=== PATIENT | female | born 1960 | race Caucasian/White ===

== ENCOUNTER 2019-12-18 18:34 | Emergency (ER) | payer OTHER, BC, SELFPAY ==
[2019-12-18 18:45] VITALS: BP 148/90; PULSE 140; RESP 18; TEMP 36.9; O2SAT 99; BMI 36.3
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
[2019-12-18 20:07] VITALS: BP 148/90; PULSE 100; RESP 18; TEMP 36.9; O2SAT 99
== END 2019-12-18 20:09 | disposition home or self-care (01) ==
PROVIDERS: Emergency Provider Nurse Practitioner Family; PCP Family Medicine
DX: S83.92XA Sprain of unspecified site of left knee, initial encounter (principal); V03.10XA Pedestrian on foot injured in collision with car, pick-up truck or van in traffic accident, initial encounter; Y92.414 Local residential or business street as the place of occurrence of the external cause
CPT/HCPCS: 73552; 73562; 99201

== ENCOUNTER → 2021-04-03 16:47 | Outpatient (CLI) | payer OTHER, SELFPAY ==
[2021-04-03 17:23] LABS: Basophils # 0.1 K/mm3 (0-0.2); Basophils % 1.1 % (0.1-2.0); Eosinophils # 0.2 K/mm3 (0.0-0.4); Eosinophils % 4.7 % (0.1-12.0); Hematocrit 41.2 % (37.0-47.0); Hemoglobin 12.9 g/dL (12.2-16.2); Lymphocytes # 1.2 K/mm3 (0.7-4.5); Lymphocytes % 25.9 % (10-50); Mean Corpuscular HGB Conc 31.3 g/dL (31.8-35.4); Mean Corpuscular Hemoglobin 27.4 pg (27.0-31.2); Mean Corpuscular Volume 87.6 fl (81-99); Monocytes # 0.2 K/mm3 (0.1-1.0); Monocytes % 5.2 % (1.7-9.3); Neutrophils # 2.8 K/mm3 (1.8-7.8); Platelet Count 114 K/mm3 (142-424); Red Cell Distribution Width 16.2 % (11.5-17.5); White Blood Count 4.5 K/mm3 (4.8-10.8)
[2021-04-05 09:13] LABS: Hepatitis B Surface Antigen Negative (Negative)
[2021-04-05 22:25] LABS: QuantiFERON-TB Gold Plus Negative (Negative)
== END ==
PROVIDERS: Visit Provider Internal Medicine Rheumatology
DX: Z79.899 Other long term (current) drug therapy (principal)
CPT/HCPCS: 36415; 85025; 86480; 87340; 87522

== ENCOUNTER → 2021-09-28 15:42 | Outpatient (CLI) | payer OTHER, SELFPAY ==
[2021-09-28 18:30] LABS: Basophils % 0.7 % (0.1-2.0); Eosinophils # 0.2 K/mm3 (0.0-0.4); Eosinophils % 5.6 % (0.1-12.0); Hematocrit 37.2 % (37.0-47.0); Hemoglobin 11.9 g/dL (12.2-16.2); Lymphocytes # 0.9 K/mm3 (0.7-4.5); Lymphocytes % 29.8 % (10-50); Mean Corpuscular HGB Conc 31.9 g/dL (31.8-35.4); Mean Corpuscular Hemoglobin 28.3 pg (27.0-31.2); Mean Corpuscular Volume 88.9 fl (81-99); Monocytes # 0.2 K/mm3 (0.1-1.0); Monocytes % 6.7 % (1.7-9.3); Neutrophils # 1.7 K/mm3 (1.8-7.8); Neutrophils % 57.1 % (37.0-80.0); Platelet Count 113 K/mm3 (142-424); Red Blood Count 4.19 M/mm3 (4.20-5.40); Red Cell Distribution Width 16.3 % (11.5-17.5); White Blood Count 2.9 K/mm3 (4.8-10.8)
== END ==
PROVIDERS: Visit Provider Internal Medicine Rheumatology
DX: Z79.899 Other long term (current) drug therapy (principal)
CPT/HCPCS: 85025

== ENCOUNTER → 2021-12-08 10:37 | Outpatient (CLI) | payer OTHER, SELFPAY ==
[2021-12-08 11:12] LABS: MANUAL DIFFERENTIAL MANUAL DIFFERENTIAL (MANUAL DIFF)
[2021-12-08 11:25] LABS: Basophils % 0.9 % (0.1-2.0); Eosinophils # 0.1 K/mm3 (0.0-0.4); Hematocrit 36.5 % (37.0-47.0); Lymphocytes # 0.8 K/mm3 (0.7-4.5); Lymphocytes % 32.2 % (10-50); Mean Corpuscular HGB Conc 32.8 g/dL (31.8-35.4); Mean Corpuscular Hemoglobin 28.5 pg (27.0-31.2); Mean Platelet Volume 9.1 fl (7.4-10.4); Monocytes # 0.1 K/mm3 (0.1-1.0); Monocytes % 5.2 % (1.7-9.3); Neutrophils # 1.5 K/mm3 (1.8-7.8); Neutrophils % 56.6 % (37.0-80.0); Platelet Count 92 K/mm3 (142-424); Red Blood Count 4.19 M/mm3 (4.20-5.40); Red Cell Distribution Width 15.5 % (11.5-17.5); White Blood Count 2.6 K/mm3 (4.8-10.8)
[2021-12-08 12:24] LABS: Alanine Aminotransferase 34 U/L (12-78); Albumin Level 3.7 g/dl (3.5-5.0); Albumin/Globulin Ratio 0.9 (1.1-1.8); Alkaline Phosphatase 94 U/L (38-126); Anion Gap 16.8 mEq/L (5-15); Aspartate Amino Transferase 64 U/L (14-36); Bilirubin,Total 0.8 mg/dl (0.2-1.3); Blood Urea Nitrogen 16 mg/dl (7-17); Calcium 8.7 mg/dl (8.4-10.2); Carbon Dioxide 21 mmol/L (22.0-30.0); Chloride 110 mmol/L (98-107); Chol/HDL Ratio 3.9 (1-3.5); Cholesterol 131 mg/dl (140-200); Estimated Glomerular Filt Rate 63 ml/min (>60); GFR (African American) 77 ML/MIN (>60); Globulin 4.3 g/dL (1.3-3.2); Glucose 139 mg/dl (74-100); HDL Cholesterol 34 mg/dl (40-60); Potassium 4.8 mmoL/L (3.5-5.1); Sodium 143 mmol/L (136-145); Triglycerides 154 mg/dl (30-150); VLDL Cholesterol 31 mg/dL (0-40)
[2021-12-08 12:34] LABS: Direct LDL Cholesterol 65.57 mg/dL (100-129)
[2021-12-08 12:54] LABS: Thyroid Stimulating Hormone 1.33 uIU/mL (0.465-4.68)
[2021-12-08 17:07] LABS: Eosinophils % 4 % (0-3); Lymphocytes % 40 % (10-50); Monocytes % 8 % (2-9); Neutrophils % 48 % (42-76); Platelet Estimate Marked Decrease; RBC Morphology Normal; Total Cells Counted 100
== END ==
PROVIDERS: Visit Provider Family Medicine
DX: I10 Essential (primary) hypertension (principal); D64.9 Anemia, unspecified; L40.50 Arthropathic psoriasis, unspecified; G47.00 Insomnia, unspecified
CPT/HCPCS: 80053; 80061; 84443; 85007; 85014; 85018; 85048; 85049

== ENCOUNTER → 2021-12-14 16:44 | Outpatient (CLI) | payer OTHER, SELFPAY ==
[2021-12-14 18:41] LABS: Vitamin B12 539 pg/mL (239-931)
[2021-12-14 20:08] LABS: Ferritin 82.7 ng/ml (11.1-264)
[2021-12-19 11:14] LABS: Iron 65 ug/dL (37-170)
[2021-12-19 11:23] LABS: Total Iron Binding Capacity 325 ug/dL (265-497)
== END ==
PROVIDERS: PCP Family Medicine; Visit Provider Internal Medicine Medical Oncology
DX: D61.818 Other pancytopenia (principal)
CPT/HCPCS: 36415; 82525; 82607; 82728; 82746; 83540; 83550

== ENCOUNTER → 2021-12-20 16:36 | Outpatient (CLI) | payer OTHER, SELFPAY ==
[2021-12-20 18:05] LABS: Chloride 104 mmol/L (98-107); Sodium 140 mmol/L (136-145)
[2021-12-20 18:06] LABS: Potassium 4.5 mmoL/L (3.5-5.1)
[2021-12-20 18:08] LABS: Alanine Aminotransferase 37 U/L (12-78); Albumin Level 4.2 g/dl (3.5-5.0); Alkaline Phosphatase 76 U/L (38-126); Anion Gap 14.5 mEq/L (5-15); Aspartate Amino Transferase 67 U/L (14-36); Bilirubin,Total 0.7 mg/dl (0.2-1.3); Blood Urea Nitrogen 20 mg/dl (7-17); Calcium 9.8 mg/dl (8.4-10.2); Carbon Dioxide 26 mmol/L (22.0-30.0); Estimated Glomerular Filt Rate 73 ml/min (>60); GFR (African American) 88 ML/MIN (>60); Globulin 4.3 g/dL (1.3-3.2); Glucose 145 mg/dl (74-100); Total Protein,Serum 8.5 g/dl (6.3-8.2)
== END ==
PROVIDERS: PCP Family Medicine; Visit Provider Emergency Medicine
DX: R74.8 Abnormal levels of other serum enzymes (principal)
CPT/HCPCS: 36415; 80053

== ENCOUNTER → 2021-12-21 08:31 | Outpatient (CLI) | payer OTHER, SELFPAY ==
--- NOTE | 2021-12-21 08:35 | CT_ITS ---
FINAL REPORT TECHNIQUE: Axial CT images of the abdomen were obtained with IV contrast only. Coronal reformatted images were also obtained. This study was performed with techniques to keep radiation doses as low as reasonably achievable (ALARA). Individualized dose reduction techniques using automated exposure control or adjustment of mA and/or kV according to the patient''s size were employed. CLINICAL HISTORY: pancytopenia FINDINGS: The lung bases are clear. The liver is enlarged up to 22 cm. The liver has a lobular, nodular peripheral margin consistent with cirrhosis. There is a small amount of ascites. The gallbladder is surgically absent. There is no evidence of biliary ductal dilatation. The pancreas appears normal. The spleen is markedly enlarged up to 19.5 cm. There is no evidence of renal mass or hydronephrosis. There is no evidence of adenopathy. No abnormal fluid collection is seen. No localized inflammatory processes identified. There are scattered diverticulum in the descending colon. IMPRESSION: Cirrhosis with hepatosplenomegaly and a small amount of ascites. Reviewed, Interpreted and Dictated by Tee Be MD Transcribed by Kamron Rdz Authenticated and [facility]
== END ==
PROVIDERS: PCP Family Medicine; Visit Provider Internal Medicine Medical Oncology
DX: D61.818 Other pancytopenia (principal)
CPT/HCPCS: 74160; Q9967

== ENCOUNTER → 2022-01-01 16:51 | Outpatient (CLI) | payer OTHER, SELFPAY ==
--- NOTE | 2022-01-01 16:54 | MM_ITS ---
PROCEDURE INFORMATION: Exam: MG Bilateral Screening 3D Mammography Exam date and time: 01/01/2022 4:59 PM Age: 61 years old Clinical indication: Screening examination TECHNIQUE: Imaging protocol: Bilateral Screening tomosynthesis and 2D mammography including computer-aided detection (CAD) when performed. COMPARISON: 1. MG SCREENING VY MAMMOGRAM 11/19/2018 7:43 AM 2. MG SCREENING VY MAMMOGRAM 11/18/2017 7:52 AM FINDINGS: MAMMOGRAPHY: Breast composition: There are scattered areas of fibroglandular density. Mass: None. Architectural distortion: None. Calcifications: No suspicious calcifications. Asymmetric density: None. Skin thickening: None. Axillary adenopathy: None. IMPRESSION: No mammographic evidence of malignancy. Annual screening is recommended unless otherwise clinically indicated. ASSESSMENT: BI-RADS Category 1: Negative
== END ==
PROVIDERS: PCP Family Medicine; Visit Provider Family Medicine
DX: Z12.31 Encounter for screening mammogram for malignant neoplasm of breast (principal)
CPT/HCPCS: 77063; 77067

== ENCOUNTER → 2022-03-01 16:45 | Outpatient (CLI) | payer OTHER, SELFPAY ==
--- NOTE | 2022-03-01 16:52 | XR_ITS ---
PROCEDURE INFORMATION: Exam: XR Right Elbow Exam date and time: 03/01/2022 4:55 PM Age: 61 years old Clinical indication: Pain; Elbow; Right; Additional info: Elbow pain TECHNIQUE: Imaging protocol: Radiologic exam of the Right elbow. Views: 3 or more views. COMPARISON: No relevant prior studies available. FINDINGS: Bones/joints: There is a nondisplaced intra-articular fracture of the radial head. No other acute fracture seen. No significant arthritic changes are seen. No evidence of hemarthrosis seen. Soft tissues: Normal. IMPRESSION: Nondisplaced radial head fracture
--- NOTE | 2022-03-01 16:52 | XR_ITS ---
PROCEDURE INFORMATION: Exam: XR Right Forearm Exam date and time: 03/01/2022 4:55 PM Age: 61 years old Clinical indication: Pain; Elbow; Right; Additional info: Fall, R elbow pain TECHNIQUE: Imaging protocol: Radiologic exam of the Right forearm. Views: 2 views. COMPARISON: No relevant prior studies available. FINDINGS: Bones/joints: There is a nondisplaced intra-articular radial head fracture. No other acute fracture seen. Negative ulnar variance is noted. Mild degenerative changes are noted in the radiocarpal joint. Soft tissues: Normal. IMPRESSION: Nondisplaced radial head fracture
== END ==
PROVIDERS: PCP Family Medicine; Visit Provider Student in an Organized Health Care Education/Training Program
DX: M25.521 Pain in right elbow (principal); M79.631 Pain in right forearm
CPT/HCPCS: 73080; 73090

== ENCOUNTER → 2022-03-28 17:01 | Outpatient (CLI) | payer OTHER, SELFPAY ==
--- NOTE | 2022-03-28 17:04 | XR_ITS ---
PROCEDURE INFORMATION: Exam: XR Right Elbow Exam date and time: 03/28/2022 5:16 PM Age: 61 years old Clinical indication: Pain; Patient HX: Fell & FX in right elbow dec 2021, recently felt elbow pop; Additional info: Elbow pain TECHNIQUE: Imaging protocol: Radiologic exam of the Right elbow. Views: 3 or more views. COMPARISON: CR XR ELBOW RT MIN 3V 03/01/2022 4:55 PM FINDINGS: Bones/joints: There is a nondisplaced comminuted intra-articular fracture of the radial head. No other acute fracture seen. Osseous alignment is normal. No significant arthritic changes seen. No significant joint fluid evident Soft tissues: Normal. IMPRESSION: Nondisplaced radial head fracture
== END ==
PROVIDERS: PCP Family Medicine; Visit Provider Physician Assistant Surgical
DX: S52.124A Nondisplaced fracture of head of right radius, initial encounter for closed fracture (principal)
CPT/HCPCS: 73080

== ENCOUNTER → 2022-05-02 16:58 | Outpatient (CLI) | payer OTHER, SELFPAY ==
--- NOTE | 2022-05-02 17:01 | XR_ITS ---
PROCEDURE INFORMATION: Exam: XR Right Elbow Exam date and time: 05/02/2022 5:04 PM Age: 61 years old Clinical indication: Pain; Elbow; Right; Additional info: Elbow fracture TECHNIQUE: Imaging protocol: Radiologic exam of the right elbow. Views: 3 or more views. COMPARISON: CR XR ELBOW RT MIN 3V 03/28/2022 5:16 PM FINDINGS: Bones/joints: There is redemonstration of nondisplaced fracture of the radial head. Minimal callus formation noted. No joint effusion. Radiocapitellar and ulnotrochlear alignment are intact Soft tissues: Normal. IMPRESSION: There is redemonstration of nondisplaced fracture of the radial head. Minimal callus formation noted.
== END ==
PROVIDERS: PCP Family Medicine; Visit Provider Physician Assistant Surgical
DX: S52.124A Nondisplaced fracture of head of right radius, initial encounter for closed fracture (principal)
CPT/HCPCS: 73080

== ENCOUNTER → 2022-05-08 13:00 | Outpatient (CLI) | payer OTHER, SELFPAY ==
[2022-05-08 17:09] LABS: Basophils % 0.2 % (0.1-2.0); Eosinophils # 0.1 K/mm3 (0.0-0.4); Eosinophils % 4.8 % (0.1-12.0); Hematocrit 32.9 % (37.0-47.0); Hemoglobin 10.6 g/dL (12.2-16.2); Lymphocytes # 0.7 K/mm3 (0.7-4.5); Lymphocytes % 29.4 % (10-50); Mean Corpuscular HGB Conc 32.4 g/dL (31.8-35.4); Mean Corpuscular Hemoglobin 28.5 pg (27.0-31.2); Mean Corpuscular Volume 88.1 fl (81-99); Mean Platelet Volume 9.9 fl (7.4-10.4); Monocytes # 0.1 K/mm3 (0.1-1.0); Monocytes % 5.8 % (1.7-9.3); Neutrophils # 1.5 K/mm3 (1.8-7.8); Neutrophils % 59.9 % (37.0-80.0); Platelet Count 106 K/mm3 (142-424); Red Blood Count 3.73 M/mm3 (4.20-5.40); Red Cell Distribution Width 15.7 % (11.5-17.5); White Blood Count 2.5 K/mm3 (4.8-10.8)
[2022-05-08 17:15] LABS: Alanine Aminotransferase 28 U/L (12-78); Albumin Level 3.5 g/dl (3.5-5.0); Albumin/Globulin Ratio 0.9 (1.1-1.8); Alkaline Phosphatase 80 U/L (38-126); Anion Gap 13.7 mEq/L (5-15); Aspartate Amino Transferase 56 U/L (14-36); Bilirubin,Total 0.6 mg/dl (0.2-1.3); Blood Urea Nitrogen 20 mg/dl (7-17); Calcium 9.2 mg/dl (8.4-10.2); Carbon Dioxide 24 mmol/L (22.0-30.0); Chloride 104 mmol/L (98-107); Chol/HDL Ratio 4.1 (1-3.5); Cholesterol 118 mg/dl (140-200); Estimated Glomerular Filt Rate 56 ml/min (>60); GFR (African American) 68 ML/MIN (>60); Globulin 4.1 g/dL (1.3-3.2); Glucose 227 mg/dl (74-100); HDL Cholesterol 29 mg/dl (40-60); Iron 99 ug/dL (37-170); Potassium 4.7 mmoL/L (3.5-5.1); Sodium 137 mmol/L (136-145); Total Protein,Serum 7.6 g/dl (6.3-8.2); Triglycerides 220 mg/dl (30-150); VLDL Cholesterol 44 mg/dL (0-40)
[2022-05-08 17:23] LABS: Hemoglobin A1C 6.2 % (4.0-6.0)
[2022-05-08 17:25] LABS: Total Iron Binding Capacity 329 ug/dL (265-497)
[2022-05-08 17:26] LABS: Direct LDL Cholesterol 58.64 mg/dL (100-129)
[2022-05-08 17:36] LABS: 25-OH Vitamin D, Total < 12.8 ng/mL (30-100)
[2022-05-08 19:01] LABS: Vitamin B12 542 pg/mL (239-931)
== END ==
PROVIDERS: PCP Family Medicine; Visit Provider Family Medicine
DX: R53.83 Other fatigue (principal); D64.9 Anemia, unspecified; Z13.1 Encounter for screening for diabetes mellitus; Z13.220 Encounter for screening for lipoid disorders; E55.9 Vitamin D deficiency, unspecified; Z79.899 Other long term (current) drug therapy
CPT/HCPCS: 80053; 80061; 82306; 82607; 83036; 83540; 83550; 84443; 85025

== ENCOUNTER 2022-11-05 16:20 | Emergency (ER) | payer OTHER, SELFPAY ==
[2022-11-05 16:21] VITALS: BP 156/89; PULSE 132; RESP 21; TEMP 36.8; O2SAT 98; BMI 35.5
--- NOTE | 2022-11-05 16:39 | HMH.EDGENADL ---
Discharge Plan Disposition Patient Disposition: Home, Self-Care Chief Complaint: Epistaxis Prescriptions Prescriptions: No Action quetiapine [Seroquel] 50 mg tablet 50 mg PO DAILY Qty: 90 2RF lisinopril 20 mg tablet See Rx Instructions .ROUTE .COMPLEX Qty: 90 3RF Dose Instruction: TAKE ONE TABLET BY MOUTH EVERY DAY FOR high blood pressure Rx Instructions: TAKE ONE TABLET BY MOUTH EVERY DAY FOR high blood pressure apremilast 30 MG tablet 30 mg PO BID secukinumab 150 MG/ML pen injector 1 inj SQ WEEKLY Rx Instructions: BI-WEEKLY Referrals Follow up/Referrals: Roly Delong DO [Primary Care Provider] - See instructions Activity Restrictions/Add. Instructions Additional Instructions/Restrictions: At this time it was felt you are safe to be discharged home. If new or worsening symptoms please do not hesitate to return the emergency department. Please follow-up with your ear nose and throat doctor in the morning as discussed. Clinical Impressions Clinical Impression: Acute anterior epistaxis, Nasal septal perforation Instructions Patient Instructions: DI for Nosebleed Discharge ED Provider: Toni Kirby General Adult HPI General Chief complaint: Epistaxis Stated complaint: NOSE BLEED Time Seen by Provider: 11/05/22 16:25 History of Present Illness HPI narrative: Patient is a 15-year-old female with past medical history of recurrent nosebleeds, possible septal perforation who presents emergency department for evaluation of nosebleed. Onset was acute, just prior to arrival. Bilateral, right greater than left. Patient presented to PCPs office and was immediately referred here for continued evaluation. Patient is not anticoagulated. Related Data Home Medications Medication Instructions Recorded Confirmed apremilast 30 mg tablet 30 mg PO BID PSORIASIS 12/18/19 05/08/22 secukinumab 150 mg/mL subcutaneous 1 inj SQ WEEKLY PSORIASIS 12/18/19 05/08/22 pen injector Previous Rx's Medication Instructions Recorded quetiapine 50 mg tablet (Seroquel) 50 mg PO DAILY #90 tabs 06/27/22 lisinopril 20 mg tablet See Rx Instructions .Route 09/18/22 .COMPLEX #90 tabs Allergies Allergy/AdvReac Type Severity Reaction Status Date / Time levofloxacin [From LEVAQUIN] Allergy Intermediate I-HIVES Verified 05/08/22 15:00 Penicillins [PENICILLINS] Allergy Intermediate I-HIVES Verified 05/08/22 15:00 Sulfa (Sulfonamide Allergy Intermediate I-HIVES Verified 05/08/22 15:00 Antibiotics) [SULFA (SULFONAMIDE ANTIBIOTICS)] aspirin [ASPIRIN] AdvReac Unknown Verified 05/08/22 15:00 [facility] Disclaimer: The information contained in this section may have been updated after the patient was seen, as this information can be updated by other users. Medical History Anemia Arthritis Hypertension Surgical History H/O colonoscopy > 5 year History of cholecystectomy History of esophagogastroduodenoscopy (EGD) History of partial hysterectomy pre-cancerous late 30's Family History Father Heart attack Social History Smoking Status: Never smoker how long ago did patient quit smokin years alcohol intake: never substance use type: denies use current occupational status: employed and other Travel in the last 8 weeks: None adopted: No caregiver/support person: No foster care: No household members: none housing: house lives independently: Yes marital status: number of children: 1 service: No usp: No ROS Obtained: Yes Systems reviewed as appropriate & no additional complaints except as documented Physical Exam General General appearance:
--- NOTE | 2022-11-05 17:23 | PC.NURSE ---
paging for ENT at [facility].
--- NOTE | 2022-11-05 17:26 | PC.NURSE ---
called [facility] for ENT hand alterations tailor, Dr Sahu
[2022-11-05 18:53] VITALS: BP 140/80; PULSE 114; RESP 20; TEMP 36.9; O2SAT 96
== END 2022-11-05 19:26 | disposition home or self-care (01) ==
PROVIDERS: Emergency Provider Emergency Medicine; PCP Internal Medicine
DX: R04.0 Epistaxis (principal); J34.89 Other specified disorders of nose and nasal sinuses; I10 Essential (primary) hypertension; M19.09 Primary osteoarthritis, other specified site
CPT/HCPCS: 30901; 99283

== ENCOUNTER 2022-11-05 22:55 | Emergency (ER) | payer OTHER, SELFPAY ==
[2022-11-05 22:56] VITALS: BP 148/79; PULSE 143; RESP 18; TEMP 36.7; O2SAT 97; BMI 36.3
--- NOTE | 2022-11-05 23:09 | PC.NURSE ---
in room talking with patient at this time.
--- NOTE | 2022-11-05 23:14 | HMH.EDGENADL ---
Discharge Plan Disposition Patient Disposition: Home, Self-Care Condition: Good Prescriptions Prescriptions: No Action quetiapine [Seroquel] 50 mg tablet 50 mg PO DAILY Qty: 90 2RF lisinopril 20 mg tablet See Rx Instructions .ROUTE .COMPLEX Qty: 90 3RF Dose Instruction: TAKE ONE TABLET BY MOUTH EVERY DAY FOR high blood pressure Rx Instructions: TAKE ONE TABLET BY MOUTH EVERY DAY FOR high blood pressure apremilast 30 MG tablet 30 mg PO BID secukinumab 150 MG/ML pen injector 1 inj SQ WEEKLY Rx Instructions: BI-WEEKLY Referrals Follow up/Referrals: Roly Delong DO [Primary Care Provider] - See instructions Activity Restrictions/Add. Instructions Additional Instructions/Restrictions: You were evaluated in the emergency department today. Please keep your follow-up with ENT in the morning. It is important to see them soon as possible for management of this to prevent worsening of your condition. Return to the emergency department for new or worsening symptoms, such as blood drainage on the back of your throat, blood pouring out from the front of your nose, or other concerns. Clinical Impressions Clinical Impression: Acute anterior epistaxis Instructions Patient Instructions: DI for Nosebleed Discharge ED Provider: Alondra Evans General Adult HPI General Chief complaint: Epistaxis Stated complaint: Re check of nose bleed Time Seen by Provider: 11/05/22 23:03 Mode of Arrival: Ambulatory Limitations: No Limitations Description of Symptoms (Recalled from ER Triage Doc. by RN): Patient came in for recheck of rhino rockets that were placed earlier tonight. History of Present Illness HPI narrative: This patient is a 61-year-old female with a history of such perforation who is supposed to follow with ENT in the morning presenting to the emergency department for reassessment of Rhino Rockets that were placed earlier this evening. Patient reports that when she got home, she noted that the Rhino Rocket's were blood-tinged. She denies any drainage down her throat, significant pain, or blood running from her nose. She denies any lightheadedness, chest pain, palpitations, or other concerns. She has otherwise been well. She is supposed to see ENT in the morning, but she was concerned that since they were observing the blood this could be an issue. On medical record review, multiple other attempts were made at hemostasis earlier including Afrin, cocaine, and ultimately the Rhino Rocket's. Related Data Home Medications Medication Instructions Recorded Confirmed apremilast 30 mg tablet 30 mg PO BID PSORIASIS 12/18/19 05/08/22 secukinumab 150 mg/mL subcutaneous 1 inj SQ WEEKLY PSORIASIS 12/18/19 05/08/22 pen injector Previous Rx's Medication Instructions Recorded quetiapine 50 mg tablet (Seroquel) 50 mg PO DAILY #90 tabs 06/27/22 lisinopril 20 mg tablet See Rx Instructions .Route 09/18/22 .COMPLEX #90 tabs Allergies Allergy/AdvReac Type Severity Reaction Status Date / Time levofloxacin [From LEVAQUIN] Allergy Intermediate I-HIVES Verified 05/08/22 15:00 Penicillins [PENICILLINS] Allergy Intermediate I-HIVES Verified 05/08/22 15:00 Sulfa (Sulfonamide Allergy Intermediate I-HIVES Verified 05/08/22 15:00 Antibiotics) [SULFA (SULFONAMIDE ANTIBIOTICS)] aspirin [ASPIRIN] AdvReac Unknown Verified 05/08/22 15:00 [facility] Disclaimer: The information contained in this section may have been updated after the patient was seen, as this information can be updated by other users. Medical History Anemia Arthritis Hypertension Surgical History H/O colonoscopy History of cholecystectomy History of esophagogastroduodenoscopy (EGD) History of partial hysterectomy Family History Father
[2022-11-05 23:15] VITALS: BP 148/79; PULSE 129; RESP 18; TEMP 36.7; O2SAT 97
== END 2022-11-05 23:18 | disposition home or self-care (01) ==
PROVIDERS: Emergency Provider Emergency Medicine; PCP Internal Medicine
DX: R04.0 Epistaxis (principal)
CPT/HCPCS: 99281

== ENCOUNTER → 2023-01-08 07:59 | Outpatient (CLI) | payer OTHER, SELFPAY ==
[2023-01-08 17:55] LABS: Basophils % 0.4 % (0.1-2.0); Eosinophils # 0.1 K/mm3 (0.0-0.4); Eosinophils % 4.5 % (0.1-12.0); Hematocrit 38.8 % (37.0-47.0); Hemoglobin 12.4 g/dL (12.2-16.2); Lymphocytes # 0.7 K/mm3 (0.7-4.5); Lymphocytes % 31.2 % (10-50); Mean Corpuscular Hemoglobin 29.2 pg (27.0-31.2); Mean Corpuscular Volume 91.4 fl (81-99); Mean Platelet Volume 9.9 fl (7.4-10.4); Monocytes # 0.1 K/mm3 (0.1-1.0); Monocytes % 5.9 % (1.7-9.3); Neutrophils # 1.3 K/mm3 (1.8-7.8); Platelet Count 70 K/mm3 (142-424); Red Blood Count 4.25 M/mm3 (4.20-5.40); Red Cell Distribution Width 15.3 % (11.5-17.5); White Blood Count 2.3 K/mm3 (4.8-10.8)
[2023-01-08 18:31] LABS: Hemoglobin A1C 6.7 % (4.0-6.0)
== END ==
PROVIDERS: PCP Internal Medicine; Visit Provider Internal Medicine
DX: Z00.00 Encounter for general adult medical examination without abnormal findings (principal); Z13.1 Encounter for screening for diabetes mellitus
CPT/HCPCS: 83036; 85025

== ENCOUNTER → 2023-02-05 16:39 | Outpatient (CLI) | payer OTHER, SELFPAY ==
--- NOTE | 2023-02-05 16:40 | MM_ITS ---
PROCEDURE INFORMATION: Exam: MG Bilateral Screening 3D Mammography Exam date and time: 02/05/2023 4:28 PM Age: 62 years old Clinical indication: Screening examination TECHNIQUE: Imaging protocol: Bilateral Screening tomosynthesis and 2D mammography including computer-aided detection (CAD) when performed. COMPARISON: 1. MG MM DIG SCREENING MAMM BI W/CAD 01/01/2022 4:59 PM 2. MG SCREENING VY MAMMOGRAM 11/19/2018 7:43 AM FINDINGS: MAMMOGRAPHY: Breast composition: There are scattered areas of fibroglandular density. Mass: None. Architectural distortion: None. Calcifications: No suspicious calcifications. Asymmetric density: None. Skin thickening: None. Axillary adenopathy: None. IMPRESSION: No mammographic evidence of malignancy. Annual screening is recommended unless otherwise clinically indicated. ASSESSMENT: BI-RADS Category 1: Negative
== END ==
PROVIDERS: PCP Internal Medicine; Visit Provider Internal Medicine
DX: Z12.31 Encounter for screening mammogram for malignant neoplasm of breast (principal)
CPT/HCPCS: 77063; 77067

== ENCOUNTER 2023-03-20 16:43 | Outpatient (CLI) | payer OTHER, SELFPAY ==
--- NOTE | 2023-03-20 16:52 | XR_ITS ---
PROCEDURE INFORMATION: Exam: XR Thoracic Spine Exam date and time: 03/20/2023 5:08 PM Age: 62 years old Clinical indication: Pain in thoracic spine; Additional info: Lower thoracic back pain TECHNIQUE: Imaging protocol: Radiologic exam of the thoracic spine. Views: 2 views. COMPARISON: CR XR LUMBAR SPINE 2-3V 03/20/2023 5:08 PM FINDINGS: Bones/joints: Mild degenerative changes are noted, characterized by mild disc space narrowing, predominantly in the mid to lower thoracic spine, indicative of early degenerative disc disease. Additionally, small osteophytes are observed at several vertebral levels, suggesting spine aging and wear and tear. Mild hypertrophic changes in the facet joints are consistent with early arthritic changes, possibly linked to localized pain or discomfort. No fractures, significant misalignments, or other acute abnormalities are identified. The findings reflect mild degenerative changes commonly associated with the natural aging process. There are degenerative changes of the thoracic spine. Soft tissues: There is no evidence of significant spondylolisthesis or spondylolysis, and the paraspinal soft tissues appear normal. Other findings: Prevertebral and paravertebral soft tissues appear unremarkable. IMPRESSION: The thoracic spine exhibits mild degenerative changes without acute pathology. These changes are typically age-related and may or may not correlate with clinical symptoms.
--- NOTE | 2023-03-20 16:52 | XR_ITS ---
PROCEDURE INFORMATION: Exam: XR Lumbosacral Spine Exam date and time: 03/20/2023 5:08 PM Age: 62 years old Clinical indication: Low back pain; Additional info: Lower back pain TECHNIQUE: Imaging protocol: Radiologic exam of the lumbosacral spine. Views: 2 or 3 views. COMPARISON: CR XR THORACIC SPINE 2V 03/20/2023 5:08 PM FINDINGS: Bones/joints: There is straightening of the normal spinal curvature. There is mild lower lumbar degenerative disease with facet arthropathy and intervertebral disc space narrowing. There is an age-indeterminate compression injury of T12. Soft tissues: Unremarkable. Intraperitoneal space: There are right upper quadrant surgical clips suggesting prior cholecystectomy. Vasculature: Multiple pelvic phleboliths are present. Other findings: Prevertebral and paravertebral soft tissues appear unremarkable. IMPRESSION: There is an age-indeterminate compression injury of T12.
== END 2023-03-20 23:59 ==
LOC: RAD 16:43
PROVIDERS: PCP Internal Medicine; Visit Provider Internal Medicine
DX: M54.6 Pain in thoracic spine (principal); M54.50 Low back pain, unspecified
CPT/HCPCS: 72070; 72100

== ENCOUNTER 2023-03-25 11:03 | Emergency (ER) | payer OTHER, SELFPAY ==
[2023-03-25 11:05] VITALS: BP 85/67; PULSE 95; RESP 17; TEMP 36.6; O2SAT 100; BMI 35.5
--- NOTE | 2023-03-25 11:08 | ECG_ITS ---
APPROVED REPORT Exam: Resting ECG HR:91 bpm ECG Measurements Heart Rate 91 AXES MS 138 P 20 QRSd 99 QRS 2 QT 362 T 42 QTc 410 Conclusion SINUS RHYTHM LOW QRS VOLTAGE IN PRECORDIAL LEADS [QRS DEFLECTION < 1.0 mV IN CHEST LEADS] MODERATE VOLTAGE CRITERIA FOR LVH, CONSIDER NORMAL VARIANT [MEETS CRITERIA IN ONE OF: R(aVL), S(V1), R(V5), R(V5/V6)+S(V1)] BORDERLINE ECG UNCONFIRMED REPORT Electronically signed by : Dionicio Bruno MD 03/25/2023 17:57:24
[2023-03-25 11:30] VITALS: BP 90/42; PULSE 105; O2SAT 100
--- NOTE | 2023-03-25 11:37 | XR_ITS ---
FINAL REPORT TECHNIQUE: Single view chest CLINICAL HISTORY: pre-syncope FINDINGS: A single view of the chest was obtained. The heart and mediastinum are within normal limits. The lungs are clear. There is no pneumothorax. Osseous structures are unremarkable. IMPRESSION: No acute cardiopulmonary process. Reviewed, Interpreted and Dictated by Joey Faith III, MD Transcribed by Priscila Tyler Authenticated and [facility]
--- NOTE | 2023-03-25 11:39 | HMH.EDGENADL ---
Discharge Plan Disposition Patient Disposition: Home, Self-Care Condition: Good Prescriptions Prescriptions: No Action metaxalone 800 mg tablet 800 mg PO TID PRN (Reason: muscle pain) Qty: 30 2RF quetiapine [Seroquel] 50 mg tablet 50 mg PO HS PRN (Reason: sleep) lisinopril 20 mg tablet 20 mg PO DAILY ferrous sulfate [Feosol] 325 mg (65 mg iron) tablet 325 mg PO DAILY cholecalciferol (vitamin D3) 1,250 mcg (50,000 unit) capsule 1,250 mcg PO WEEKLY Qty: 10 0RF metformin 500 mg tablet 500 mg PO BID Qty: 60 2RF apremilast 30 MG tablet 30 mg PO BID Referrals Follow up/Referrals: Roly Delong DO [Primary Care Provider] - See instructions Activity Restrictions/Add. Instructions Additional Instructions/Restrictions: You have been evaluated in the ED for your complaints. You may follow-up with your PCP in the next 3 to 5 days. Please return to ED for any new or worsening symptoms. As discussed, please speak with your PCP concerning your Robaxin that was prescribed to you. I believe that your symptoms today are due to Robaxin side effect as it was your first day taking 3 doses of the medication. Please make sure that you are drinking plenty of fluids. Clinical Impressions Clinical Impression: Dizziness Instructions Patient Instructions: Dizziness, Nonvertigo Discharge ED Provider: Rojas Mejia Adult HPI General Chief complaint: Dizziness Stated complaint: dizzy Time Seen by Provider: 03/25/23 11:32 Mode of Arrival: EMS Source of Information: Patient Limitations: No Limitations Description of Symptoms (Recalled from ER Triage Doc. by RN): pt presents to ED with lightheadedness. pt reports she does take lisinopril in the am. pt reports she felt fine at work. but began to feel lightheaded and nauseated. BP was taken at her work and was found to be hypotensive. History of Present Illness HPI narrative: 62-year-old female with past medical history significant for anemia, psoriatic arthritis, hypertension, presents today for evaluation concerning dizziness characterized as lightheadedness onset this morning while she was sitting at her desk at work. States that she also turned very pale during that time. She did not fully pass out. Denies any chest pain, shortness of breath, fevers, chills, abdominal pain, dysuria, hematuria, diarrhea, constipation, vomiting or any other associated symptoms at this time. She does report that her provider recently started her on methocarbamol 3 times daily. She states that she did not take a dose at all on this past Saturday however on yesterday she did take 3 doses with last dose prior to bedtime. She has no further complaints at this time. Related Data Home Medications Medication Instructions Recorded Confirmed apremilast 30 mg tablet 30 mg PO BID PSORIASIS 12/18/19 03/20/23 ferrous sulfate 325 mg (65 mg 325 mg PO DAILY 01/08/23 03/20/23 iron) tablet (Feosol) lisinopril 20 mg tablet 20 mg PO DAILY 01/08/23 03/20/23 quetiapine 50 mg tablet (Seroquel) 50 mg PO HS PRN sleep 03/20/23 03/20/23 Previous Rx's Medication Instructions Recorded cholecalciferol (vitamin D3) 1,250 1,250 mcg PO WEEKLY #10 caps 01/11/23 mcg (50,000 unit) capsule metformin 500 mg tablet 500 mg PO BID #60 tabs 01/24/23 metaxalone 800 mg tablet 800 mg PO TID PRN muscle pain #30 03/20/23 tabs Allergies Allergy/AdvReac Type Severity Reaction Status Date / Time levofloxacin [From LEVAQUIN] Allergy Intermediate I-HIVES Verified 03/20/23 08:05 Penicillins [PENICILLINS] Allergy Intermediate I-HIVES Verified 03/20/23 08:05 Sulfa (Sulfonamide Allergy Intermediate I-HIVES Verified 03/20/23 08:05 Antibiotics) [SULFA (SULFONAMIDE ANTIBIOTICS)] aspirin [ASPIRIN] AdvReac Unknown Verified 03/20/23 08:05 [facility] Disclaimer: The information contained in this section may have been updated after the patient was seen, as this information can be updated by other users. Medical History Anemia Arthritis Hypertension Surgical History H/O colonoscopy > 5 year History of cholecystectomy History of esophagogastroduodenoscopy (EGD) History of partial hysterectomy pre-cancerous late 30's Family History Father Heart attack Social History Smoking Status: Former smoker how long ago did patient quit smokin years alcohol intake: never substance use type: denies use current occupational status: employed and other Travel in the last 8 weeks: None adopted: No caregiver/support person: No foster care: No household members: none housing: house lives independently: Yes marital status: number of children: 1 service: No half-way: No ROS Obtained: Yes All systems reviewed & no additional complaints except as documented Physical Exam General General appearance: alert and in no apparent distress Head Head exam: atraumatic and normocephalic Eye Eye exam: Present normal appearance, PERRL and EOMI ENT ENT exam: Present normal oropharynx and mucous membranes moist Neck Neck exam: Present full ROM; Absent meningismus Respiratory Respiratory exam: Absent respiratory distress, wheezes, stridor or accessory muscle use Cardiovascular Cardiovascular exam: Present normal rhythm Abdominal Exam Abdominal exam: Present soft; Absent distention, tenderness, guarding, rebound or rigidity Neurological Exam Neurological exam: Present alert, oriented X3 and CN II-XII intact; Absent motor sensory deficit Psychiatric Psychiatric exam: Present normal affect and normal mood Skin Skin exam: Present warm and dry Medical Decision Making Medical Records Medical records reviewed: Yes I reviewed the patient's medical records. Christopher Inquiry Pt receiving controlled substance: No Christopher was queried for this patient: No Vital Signs: 03/25/23 11:05 03/25/23 11:30 03/25/23 12:00 Temperature 97.9 F Temperature Source Oral Pulse Rate 105 H 98 H Pulse Rate [Left Radial] 95 H Respiratory Rate 17 20 Blood Pressure 90/42 L 116/72 Blood Pressure [Right Arm] 85/67 L Blood Pressure Mean 66 83 Blood Pressure Mean [Right Arm] 73 02 Sat by Pulse Oximetry 100 100 99 Oxygen Delivery Method Room Air Lab Data Lab Results 03/25/23 11:07: WBC 2.9 L, RBC 2.96 L, Hgb 8.2 L, Hct 24.8 L, MCV 83.7, MCH 27.6, MCHC 32.9, RDW 15.5, Plt Count 115 L, MPV 9.0, Neut % (Auto) 53.3, Lymph % (Auto) 33.9, [place] % (Auto) 6.5, Eos % (Auto) 6.2, Baso % (Auto) 0.2, Neut # (Auto) 1.5 L, Lymph # (Auto) 1.0, [place] # (Auto) 0.2, Eos # (Auto) 0.2, Baso # (Auto) 0.0, Sodium 139, Potassium 4.1, Chloride 112 H, Carbon Dioxide 17 L, Anion Gap 14.1, BUN 19 H, Creatinine 1.10 H, Estimated Creat Clear 82, Estimated GFR 50 L, Est GFR ( Amer) 61, Glucose 138 H, Calcium 10.0, Magnesium 1.8, Total Bilirubin 0.6, AST 48 H, ALT 28, Alkaline Phosphatase 66, Troponin I < 0.01, Total Protein 7.5, Albumin 3.4 L, Globulin 4.1 H, Albumin/Globulin Ratio 0.8 L 03/25/23 13:09: Troponin I < 0.01 03/25/23 11:07 03/25/23 11:07 Orders (Tests/Meds): ED MEDICATIONS Discontinued Medications Generic Name Dose Route Start Last Admin Trade Name Freq PRN Reason Stop Dose Admin Lactated Ringer's 500 mls @ 999 mls/hr 03/25/23 12:44 03/25/23 12:53 Lactated Ringer's 500ml IV 03/25/23 13:14 999 mls/hr .Q31M ONE Administration Ondansetron HCl 4 mg 03/25/23 11:37 03/25/23 11:47 Ondansetron 4mg Odt SL 03/25/23 11:38 4 mg ONCE ONE Administration ORDERS Category Date Time Status CXR --portable [XR chest portable] Stat Exams 03/25/23 11:37 Completed Complete Blood Count Auto Diff Stat Lab 03/25/23 11:07 Completed Comprehensive Metabolic Panel Stat Lab 03/25/23 11:07 Completed Magnesium Stat Lab 03/25/23 11:07 Completed Troponin I Q3H Lab 03/25/23 13:09 Completed Troponin I Q3H Lab 03/25/23 17:45 Ordered Troponin I Stat Lab 03/25/23 11:07 Completed ECG initial [place] Routine Y 03/25/23 11:08 Completed ECG Data Tracing #1: I reviewed this ECG and interpreted as documented below: EKG is personally interpreted by me. Normal sinus rhythm with a rate of [address] elevations noted to suggest ischemia. Medical Decision Narrative: 62-year-old female with past medical history significant for anemia, psoriatic arthritis, hypertension, presents today for evaluation concerning dizziness characterized as lightheadedness onset this morning while she was sitting at her desk at work. States that she did not fully pass out. States that she was recently put on methocarbamol by her provider 3 times daily. She did not take the dose at all on Saturday however had 3 doses on yesterday with her last dose being prior to bedtime. On assessment she is hemodynamically stable and in no acute distress. Afebrile. Neurological exam was nonfocal. Chest clear auscultation bilaterally. Abdomen soft nondistended nontender to palpation. Other physical exam findings unremarkable. Differential diagnoses include not limited to STEMI, NSTEMI, dysrhythmia, electrolyte disturbance, vagal response, medication effect among others. Patient's EKG was personally interpreted by me and did not show any findings concerning for ischemia. Her chest x-ray was also interpreted me and did not show any acute cardiopulmonary disease processes. First and second troponins were unremarkable. She did have a hemoglobin of 8.2, hematocrit of 24.8. Creatinine was 1.10. She did receive a fluid bolus while in the ED. On reassessment, the patient dynamically stable and in no acute distress. She remained asymptomatic and was well-appearing. I discussed with patient her ED workup and results and current plan to discharge home. Discussed with patient that her dizziness today could likely be due to her Robaxin as yesterday was her first time taking 3 doses of the medication. Provided her with return ED precautions and instructions concerning PCP follow-up. She verbalized understanding and agreement with subsequently discharged home hemodynamically stable and in no acute distress. Critical Care Critical Care Time Critical Care Time: No
[2023-03-25] MEDS: ONDANSETRON 4MG ODT 4 MG SL (11:47)
[2023-03-25 11:57] LABS: Basophils % 0.2 % (0.1-2.0); Eosinophils # 0.2 K/mm3 (0.0-0.4); Eosinophils % 6.2 % (0.1-12.0); Hematocrit 24.8 % (37.0-47.0); Hemoglobin 8.2 g/dL (12.2-16.2); Lymphocytes % 33.9 % (10-50); Mean Corpuscular HGB Conc 32.9 g/dL (31.8-35.4); Mean Corpuscular Hemoglobin 27.6 pg (27.0-31.2); Mean Corpuscular Volume 83.7 fl (81-99); Monocytes # 0.2 K/mm3 (0.1-1.0); Monocytes % 6.5 % (1.7-9.3); Neutrophils # 1.5 K/mm3 (1.8-7.8); Neutrophils % 53.3 % (37.0-80.0); Platelet Count 115 K/mm3 (142-424); Red Blood Count 2.96 M/mm3 (4.20-5.40); Red Cell Distribution Width 15.5 % (11.5-17.5); White Blood Count 2.9 K/mm3 (4.8-10.8)
[2023-03-25 12:00] VITALS: BP 116/72; PULSE 98; RESP 20; O2SAT 99
[2023-03-25 12:00] LABS: Alanine Aminotransferase 28 U/L (12-78); Albumin Level 3.4 g/dl (3.5-5.0); Albumin/Globulin Ratio 0.8 (1.1-1.8); Alkaline Phosphatase 66 U/L (38-126); Anion Gap 14.1 mEq/L (5-15); Aspartate Amino Transferase 48 U/L (14-36); Bilirubin,Total 0.6 mg/dl (0.2-1.3); Blood Urea Nitrogen 19 mg/dl (7-17); Carbon Dioxide 17 mmol/L (22.0-30.0); Chloride 112 mmol/L (98-107); Creatinine Clearance Estimated 82 mL/min (50-200); Estimated Glomerular Filt Rate 50 ml/min (>60); GFR (African American) 61 ML/MIN (>60); Globulin 4.1 g/dL (1.3-3.2); Glucose 138 mg/dl (74-100); Magnesium 1.8 mg/dl (1.6-2.3); Potassium 4.1 mmoL/L (3.5-5.1); Sodium 139 mmol/L (136-145); Total Protein,Serum 7.5 g/dl (6.3-8.2)
[2023-03-25 12:19] LABS: Troponin I < 0.01 ng/ml (0.00-0.034)
--- NOTE | 2023-03-25 12:43 | PC.NURSE ---
pt to xray and back
[2023-03-25] MEDS: RINGERS SOLUTION,LACTATED 500 ML 999 ML IV (12:53)
[2023-03-25 13:50] LABS: Troponin I < 0.01 ng/ml (0.00-0.034)
[2023-03-25 14:31] VITALS: BP 127/88; PULSE 82; RESP 18; TEMP 36.6; O2SAT 98
== END 2023-03-25 14:32 | disposition home or self-care (01) ==
PROVIDERS: Emergency Provider Emergency Medicine; PCP Internal Medicine
DX: R42 Dizziness and giddiness (principal); I10 Essential (primary) hypertension; D64.9 Anemia, unspecified; L40.50 Arthropathic psoriasis, unspecified; Z87.891 Personal history of nicotine dependence
CPT/HCPCS: 71045; 80053; 83735; 84484; 85025; 93005; 99284

== ENCOUNTER 2023-03-26 21:07 | Outpatient (CLI) | payer OTHER, SELFPAY ==
[2023-03-27 18:47] LABS: Basophils % 0.1 % (0.1-2.0); Eosinophils # 0.1 K/mm3 (0.0-0.4); Eosinophils % 5.6 % (0.1-12.0); Hematocrit 24.9 % (37.0-47.0); Hemoglobin 7.8 g/dL (12.2-16.2); Lymphocytes # 0.8 K/mm3 (0.7-4.5); Lymphocytes % 37.7 % (10-50); Mean Corpuscular HGB Conc 31.1 g/dL (31.8-35.4); Mean Corpuscular Hemoglobin 26.3 pg (27.0-31.2); Mean Corpuscular Volume 84.5 fl (81-99); Monocytes # 0.1 K/mm3 (0.1-1.0); Neutrophils # 1.1 K/mm3 (1.8-7.8); Neutrophils % 50.6 % (37.0-80.0); Platelet Count 100 K/mm3 (142-424); Red Blood Count 2.95 M/mm3 (4.20-5.40); Red Cell Distribution Width 15.7 % (11.5-17.5); White Blood Count 2.2 K/mm3 (4.8-10.8)
== END 2023-03-26 23:59 ==
LOC: LAB.DROPOF 03-27 21:07
PROVIDERS: PCP Internal Medicine; Visit Provider Internal Medicine
DX: D61.818 Other pancytopenia (principal)
CPT/HCPCS: 85025

== ENCOUNTER 2023-04-11 07:23 | Outpatient (CLI) | payer OTHER, SELFPAY ==
[2023-04-11 07:52] LABS: Activated Partial Thrombo Time 27.6 seconds (22.8-30.6); INR 1.14 (0.9-1.1); Prothrombin Time 12.2 seconds (10.1-12.5)
[2023-04-11 09:05] LABS: Alanine Aminotransferase 25 U/L (12-78); Albumin Level 3.6 g/dl (3.5-5.0); Albumin/Globulin Ratio 0.9 (1.1-1.8); Alkaline Phosphatase 69 U/L (38-126); Anion Gap 11.6 mEq/L (5-15); Aspartate Amino Transferase 41 U/L (14-36); Bilirubin,Total 0.7 mg/dl (0.2-1.3); Blood Urea Nitrogen 19 mg/dl (7-17); Calcium 8.9 mg/dl (8.4-10.2); Carbon Dioxide 20 mmol/L (22.0-30.0); Chloride 111 mmol/L (98-107); Estimated Glomerular Filt Rate 45 ml/min (>60); GFR (African American) 55 ML/MIN (>60); Globulin 3.9 g/dL (1.3-3.2); Glucose 130 mg/dl (74-100); Potassium 4.6 mmoL/L (3.5-5.1); Sodium 138 mmol/L (136-145); Total Protein,Serum 7.5 g/dl (6.3-8.2)
[2023-04-16 10:00] LABS: Fibrosis Stage F1-F2; Steatosis Score 0.55
[2023-04-16 10:01] LABS: Alpha 2-Macroglobulins, Qn 229; NASH Grade N2; NASH Score 0.69; Steatosis Grade S2-S3
[2023-04-16 10:02] LABS: Apolipoprotein A-1 103; Bilirubin, Total 0.5; GGT 21; Haptoglobin 100
[2023-04-16 10:03] LABS: ALT (SGPT) P5P 18; AST (SGOT) P5P 38; Cholesterol, Total 103; Triglycerides 119
[2023-04-16 10:04] LABS: Glucose 135
== END 2023-04-11 23:59 ==
LOC: LAB 07:23
PROVIDERS: PCP Internal Medicine; Visit Provider Nurse Practitioner
DX: D61.818 Other pancytopenia (principal); D64.9 Anemia, unspecified; K74.60 Unspecified cirrhosis of liver; R18.8 Other ascites; R79.89 Other specified abnormal findings of blood chemistry; R16.1 Splenomegaly, not elsewhere classified; R16.0 Hepatomegaly, not elsewhere classified
CPT/HCPCS: 36415; 80053; 82105; 85610; 85730

== ENCOUNTER 2023-04-12 08:36 | Outpatient (CLI) | payer OTHER, SELFPAY ==
[2023-04-12] VITALS (11 sets, daily range): BP systolic 95–150; BP diastolic 49–76; PULSE 92–126; RESP 16–18; TEMP 36.5–36.6; O2SAT 97–100; BMI 35.5
--- NOTE | 2023-04-12 08:37 | CT_ITS ---
FINAL REPORT CLINICAL HISTORY: liver biopsy for cirrhosis FINDINGS: CT GUIDE LIVER BIOPSY. HISTORY: Cirrhosis ATTENDING PHYSICIAN: Dr. Riley PHYSICIAN PUNCHBOARD ASSEMBLER: Grady Cohn PA-C PROCEDURE: After informed consent was obtained and a timeout was performed, the patient was prepped and draped in usual sterile fashion over the right lateral abdomen. Utilizing local anesthesia and sterile technique with a coaxial system, access to the liver was obtained. 2 18-gauge core biopsy passes were made. Post biopsy films demonstrate no complications. The patient received mild procedural sedation. The patient tolerated the procedure well and left the department in good condition. IMPRESSION: Status post CT-guided biopsy of the liver nodule. PROCEDURAL SEDATION: 2 mg of IV Versed and 50 mcg of Fentanyl were administered. Continuous vital sign monitoring was used. An RN was present during the sedation process. Overall sedation time was 30 minutes. Films reviewed , interpreted and dictated by Dr. Mahsa Riley. Transcribed by Grady Cohn PA-C. Reviewed, Interpreted and Dictated by Mahsa Riley MD Transcribed by SEVERO Aguirre Authenticated and [facility]
--- NOTE | 2023-04-12 08:41 | CT_ITS ---
FINAL REPORT TECHNIQUE: Axial CT images of the abdomen were obtained with IV contrast only. Coronal reformatted images were also obtained. This study was performed with techniques to keep radiation doses as low as reasonably achievable (ALARA). Individualized dose reduction techniques using automated exposure control or adjustment of mA and/or kV according to the patient''s size were employed. CLINICAL HISTORY: eval spleen and liver/ eval ascities COMPARISON: 12/21/2021 FINDINGS: The lung bases are clear. Note is made of esophageal varices, stable. The liver has an abnormal contour without a focal lesion, consistent with the clinical diagnosis of cirrhosis. The overall appearance of the liver remained stable since the prior CT of December 2021. The gallbladder has been surgically resected. There is no evidence of biliary ductal dilatation. The pancreas appears normal. Splenomegaly is present, with the spleen measuring 19 cm in long axis, stable since the prior exam. There is no evidence of renal mass or hydronephrosis. There is no evidence of adenopathy. No abnormal fluid collection is seen. No localized inflammatory processes identified. IMPRESSION: Nodular appearance of the liver without focal mass, consistent with cirrhosis, stable since prior CT of 2021. Splenomegaly, also stable since the prior exam. Esophageal varices are again noted, unchanged. Reviewed, Interpreted and Dictated by Mahsa Riley MD Transcribed by Ness Fernandes Authenticated and [facility]
[2023-04-12 09:15] LABS: POC Glucose,Bedside 155 (70-110)
[2023-04-12] MEDS: IOPAMIDOL-370 (76%);100ML BOTTLE 75 ML IV (10:16)
[2023-04-12] MEDS: SODIUM CHLORIDE 0.9% 10ML SYR (RAD ONLY) 10 ML IV (10:16)
--- NOTE | 2023-04-12 12:39 | PC.NURSE ---
1215 pt site to right flank area cdi. no issues noted.
== END 2023-04-12 12:15 | disposition home or self-care (01) ==
PROVIDERS: PCP Internal Medicine; Visit Provider Nurse Practitioner
DX: R18.8 Other ascites (principal); K74.60 Unspecified cirrhosis of liver; R16.1 Splenomegaly, not elsewhere classified; D61.818 Other pancytopenia; D64.9 Anemia, unspecified; R79.89 Other specified abnormal findings of blood chemistry
CPT/HCPCS: 47000; 74160; 77012; 82962; Q9967

== ENCOUNTER 2023-05-02 10:18 | Day surgery (SDC) | payer OTHER, SELFPAY ==
[2023-04-29 12:53] VITALS: BMI 34.8
[2023-05-02 10:43] VITALS: BP 156/83; PULSE 128; RESP 18; TEMP 36.9; O2SAT 100
[2023-05-02] MEDS: LACTATED RINGERS 1000ML 1,000 ML 25 ML IV (10:43)
--- NOTE | 2023-05-02 11:22 | EXP.ANES.CKL ---
[facility] Disclaimer: The information contained in this section may have been updated after the patient was seen, as this information can be updated by other users. Medical History Arthritis Anemia Hypertension Surgical History History of liver biopsy History of esophagogastroduodenoscopy (EGD) H/O colonoscopy History of cholecystectomy History of partial hysterectomy Family History Father Heart attack Social History Smoking Status: Former smoker how long ago did patient quit smokin years alcohol intake: never substance use type: denies use current occupational status: employed and other Travel in the last 8 weeks: None adopted: No caregiver/support person: No foster care: No household members: none housing: house lives independently: Yes marital status: number of children: 1 service: No assisted: No [facility] Anesthesia Checklist Patient Identification Patient Identification: Arm Band and Verbal (Name & ) Structural Data Admitted From: Home Planned Operative Procedure/s: EGD NPO Status Verified Time NPO: 00:00 Additional verifications Anesthesia Reactions: No Hx Blood Transfusions: Yes Blood Transfusion Reaction: No Airway Assessment Mallampati Score:: Class II C-Spine Mobility Assessed: Yes TMJ Mobility Assessed: Yes Dentition: Good Dentition Neurological Assessment Level of Consciousness: Awake Hx Seizures: No Numbness or tingling in extremities: No Anesthesia Plan Anesthesia Risk discussed: Yes Anesthesia Plan: Verified ASA Class: II Anesthesia Type: MAC
[2023-05-02 11:28] VITALS: O2SAT 100
[2023-05-02 11:44] VITALS: BP 110/59; PULSE 112; RESP 18; TEMP 36.8; O2SAT 98
--- NOTE | 2023-05-02 11:53 | HMH.SCOPE ---
Procedure: Date: 05/02/23 Patient Date of :: 1960 Procedure Performed:: Diagnostic EGD Indications:: Cirrhosis, varices check Performing Provider:: Daniel Ty MD Referring Provider:: Alyson Ty APRN Sedation:: Propofol Procedure:: The gastroscope was gently passed through the incisoral orifice into the oral cavity and under direct visualization the esophagus was intubated. The endoscope was passed down the esophagus, through the stomach, and into the duodenum. Color, texture, mucosa, and anatomy of the esophagus, stomach, and duodenum were carefully examined with the scope. Findings:: Oropharynx: normal Esophagus: Evidence of 3+ varices in lower 1/2 of the esophagus. No evidence of recent bleed noted. 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 Recommendations:: Reasonable to consider starting beta-fifi therapy. MELD score calculation and monitoring of disease progression. Referral to [facility] for transplant evaluation as clinically indicated. Complications:: None Estimated blood obtained (mL): 0 Colonoscopy Component Colonoscopy Component Was a colonoscopy performed during today's procedure?: No
[2023-05-02 11:54] VITALS: BP 93/54; PULSE 107; RESP 17; O2SAT 97
[2023-05-02 12:04] VITALS: BP 107/61; PULSE 104; RESP 18; O2SAT 96
[2023-05-02 12:14] VITALS: BP 128/89; PULSE 97; RESP 17; O2SAT 100
[2023-05-03 07:35] LABS: POC Glucose,Bedside 133 (70-110)
== END 2023-05-02 12:25 | disposition home or self-care (01) ==
PROVIDERS: PCP Internal Medicine; Visit Provider Internal Medicine Gastroenterology
PROC: 0DJ08ZZ Inspection of Upper Intestinal Tract, Via Natural or Artificial Opening Endoscopic (ICD-10-PCS; CPT 43235; principal; 2023-05-02 11:30)
DX: K74.60 Unspecified cirrhosis of liver (principal); I85.10 Secondary esophageal varices without bleeding; K76.6 Portal hypertension; Z79.899 Other long term (current) drug therapy
CPT/HCPCS: 43235; 82962

== ENCOUNTER 2023-05-06 19:10 | Outpatient (CLI) | payer OTHER, SELFPAY ==
[2023-05-06 18:39] LABS: Basophils % 0.4 % (0.1-2.0); Eosinophils # 0.1 K/mm3 (0.0-0.4); Eosinophils % 4.9 % (0.1-12.0); Hematocrit 23.8 % (37.0-47.0); Hemoglobin 7.2 g/dL (12.2-16.2); Lymphocytes # 0.9 K/mm3 (0.7-4.5); Mean Corpuscular HGB Conc 30.1 g/dL (31.8-35.4); Mean Corpuscular Hemoglobin 23.4 pg (27.0-31.2); Mean Corpuscular Volume 77.7 fl (81-99); Mean Platelet Volume 9.9 fl (7.4-10.4); Monocytes # 0.2 K/mm3 (0.1-1.0); Monocytes % 7.8 % (1.7-9.3); Neutrophils # 1.7 K/mm3 (1.8-7.8); Platelet Count 148 K/mm3 (142-424); Red Blood Count 3.07 M/mm3 (4.20-5.40); Red Cell Distribution Width 17.6 % (11.5-17.5)
== END 2023-05-06 23:59 ==
LOC: LAB.DROPOF 19:10
PROVIDERS: PCP Internal Medicine; Visit Provider Internal Medicine
DX: Z79.899 Other long term (current) drug therapy (principal)
CPT/HCPCS: 85025

== ENCOUNTER 2023-05-29 14:42 | Outpatient (CLI) | payer OTHER, SELFPAY ==
[2023-05-29 18:19] LABS: Basophils % 0.4 % (0.1-2.0); Eosinophils # 0.2 K/mm3 (0.0-0.4); Hemoglobin 7.4 g/dL (12.2-16.2); Lymphocytes # 0.7 K/mm3 (0.7-4.5); Lymphocytes % 32.6 % (10-50); Mean Corpuscular HGB Conc 29.5 g/dL (31.8-35.4); Mean Corpuscular Hemoglobin 22.8 pg (27.0-31.2); Mean Corpuscular Volume 77.3 fl (81-99); Mean Platelet Volume 8.5 fl (7.4-10.4); Monocytes # 0.2 K/mm3 (0.1-1.0); Monocytes % 7.1 % (1.7-9.3); Neutrophils # 1.2 K/mm3 (1.8-7.8); Neutrophils % 51.8 % (37.0-80.0); Platelet Count 129 K/mm3 (142-424); Red Blood Count 3.23 M/mm3 (4.20-5.40); Red Cell Distribution Width 21.3 % (11.5-17.5); White Blood Count 2.2 K/mm3 (4.8-10.8)
[2023-05-29 19:04] LABS: Iron 70 ug/dL (37-170)
[2023-05-29 19:14] LABS: Total Iron Binding Capacity 397 ug/dL (265-497)
[2023-05-29 19:41] LABS: Ferritin 10.5 ng/ml (11.1-264)
== END 2023-05-29 23:59 | disposition home or self-care (01) ==
LOC: LAB.DROPOF 05-30 14:42
PROVIDERS: PCP Internal Medicine; Visit Provider Internal Medicine
DX: D64.9 Anemia, unspecified (principal); R79.89 Other specified abnormal findings of blood chemistry
CPT/HCPCS: 82728; 83540; 83550; 85025

== ENCOUNTER 2023-10-31 07:41 | Outpatient (CLI) | payer OTHER, SELFPAY ==
--- NOTE | 2023-10-31 07:41 | US_ITS ---
FINAL REPORT CLINICAL HISTORY: eval liver St 3 cirrohsis COMPARISON: CT of the abdomen and pelvis dated 04/12/2023 FINDINGS: Sonographic images of the right upper quadrant were obtained. The pancreas is partially obscured. The liver has a nodular margin consistent with a clinical diagnosis of cirrhosis. The portal vein measures 18 mm in diameter, enlarged, suggestive of portal venous hypertension. The gallbladder has been surgically resected. There is no evidence of biliary ductal dilatation.The common duct measures 9 mm, which may be secondary to post cholecystectomy change. Limited images of the right kidney reveal mild thinning of the right renal cortex. IMPRESSION: Nodular margin of the liver consistent with cirrhosis, also seen on the prior CT of 04/12/2023. Portal vein is enlarged, probably secondary to portal venous hypertension. Prior cholecystectomy may account for common bile duct measurement of 9 mm. Thinning of the right renal cortex, can be seen with medical renal disease. Reviewed, Interpreted and Dictated by Tee Be MD Transcribed by Ness Fernandes Authenticated and [facility]
== END 2023-10-31 23:59 | disposition home or self-care (01) ==
LOC: RAD 07:41
PROVIDERS: PCP Internal Medicine; Visit Provider Nurse Practitioner
DX: K72.90 Hepatic failure, unspecified without coma (principal); K74.60 Unspecified cirrhosis of liver; I85.10 Secondary esophageal varices without bleeding; R18.8 Other ascites
CPT/HCPCS: 76705

== ENCOUNTER 2023-11-06 15:29 | Outpatient (CLI) | payer OTHER, SELFPAY ==
[2023-11-06 15:47] LABS: Basophils % 0.9 % (0.1-2.0); Eosinophils # 0.1 K/mm3 (0.0-0.4); Eosinophils % 6.9 % (0.1-12.0); Hematocrit 38.8 % (37.0-47.0); Hemoglobin 12.4 g/dL (12.2-16.2); Lymphocytes # 0.6 K/mm3 (0.7-4.5); Lymphocytes % 35.9 % (10-50); Mean Corpuscular Hemoglobin 29.5 pg (27.0-31.2); Mean Corpuscular Volume 92.1 fl (81-99); Mean Platelet Volume 9.8 fl (7.4-10.4); Monocytes # 0.1 K/mm3 (0.1-1.0); Monocytes % 7.3 % (1.7-9.3); Neutrophils # 0.9 K/mm3 (1.8-7.8); Neutrophils % 49.1 % (37.0-80.0); Platelet Count 76 K/mm3 (142-424); Red Blood Count 4.21 M/mm3 (4.20-5.40); Red Cell Distribution Width 16.2 % (11.5-17.5); White Blood Count 1.8 K/mm3 (4.8-10.8)
[2023-11-06 15:52] LABS: Ammonia 27 umol/L (9-30)
[2023-11-06 15:54] LABS: INR 1.12 (0.9-1.1); Prothrombin Time 12.4 seconds (10.1-12.5)
[2023-11-06 16:39] LABS: Chloride 111 mmol/L (98-107); Potassium 4.1 mmoL/L (3.5-5.1); Sodium 139 mmol/L (136-145)
[2023-11-06 16:42] LABS: Alanine Aminotransferase 30 U/L (12-78); Alkaline Phosphatase 63 U/L (38-126); Anion Gap 9.1 mEq/L (5-15); Aspartate Amino Transferase 60 U/L (14-36); Bilirubin,Total 0.8 mg/dl (0.2-1.3); Blood Urea Nitrogen 17 mg/dl (7-17); Calcium 9.4 mg/dl (8.4-10.2); Carbon Dioxide 23 mmol/L (22.0-30.0); Estimated Glomerular Filt Rate 72 ml/min (>60); GFR (African American) 88 ML/MIN (>60); Globulin 4.1 g/dL (1.3-3.2); Glucose 162 mg/dl (74-100); Iron 74 ug/dL (37-170); Total Protein,Serum 8.1 g/dl (6.3-8.2)
[2023-11-06 16:51] LABS: Total Iron Binding Capacity 346 ug/dL (265-497)
[2023-11-06 17:18] LABS: Ferritin 54.1 ng/ml (11.1-264)
[2023-11-08 08:33] LABS: AFP, Tumor Marker 3.9 ng/mL (0.0-9.2)
== END 2023-11-06 23:59 | disposition home or self-care (01) ==
LOC: LAB 15:29
PROVIDERS: PCP Internal Medicine; Visit Provider Internal Medicine Gastroenterology
DX: K74.69 Other cirrhosis of liver (principal); B19.20 Unspecified viral hepatitis C without hepatic coma; K76.6 Portal hypertension; Z92.21 Personal history of antineoplastic chemotherapy
CPT/HCPCS: 36415; 80053; 82105; 82140; 82728; 83540; 83550; 85025; 85610

== ENCOUNTER 2023-12-04 16:27 | Outpatient (CLI) | payer OTHER, SELFPAY ==
--- NOTE | 2023-12-04 16:32 | XR_ITS ---
PROCEDURE INFORMATION: Exam: XR Right Shoulder Exam date and time: 12/04/2023 4:35 PM Age: 62 years old Clinical indication: Pain; Shoulder; Right; Additional info: Shoulder pain TECHNIQUE: Imaging protocol: Radiologic exam of the right shoulder. Views: 2 or more views. COMPARISON: CR XR CHEST PORTABLE 03/25/2023 11:44 AM FINDINGS: Bones/joints: No acute fracture identified. Mild degenerative changes of the glenohumeral and AC joint. Soft tissues: Normal. IMPRESSION: No acute abnormality.
== END 2023-12-04 23:59 | disposition home or self-care (01) ==
LOC: RAD 16:27
PROVIDERS: PCP Internal Medicine; Visit Provider Internal Medicine
DX: M25.511 Pain in right shoulder (principal)
CPT/HCPCS: 73030

== ENCOUNTER 2023-12-09 07:22 | Outpatient (CLI) | payer OTHER, SELFPAY ==
--- NOTE | 2023-12-09 07:27 | MR_ITS ---
PROCEDURE INFORMATION: Exam: MR Right Upper Extremity Joint Without Contrast; Shoulder Exam date and time: 12/09/2023 7:29 AM Age: 63 years old Clinical indication: Pain; Shoulder; Right; Additional info: Rotator cuff injury TECHNIQUE: Imaging protocol: Magnetic resonance imaging of the right upper extremity without contrast. Exam focused on the shoulder. COMPARISON: CR XR SHOULDER RT MIN 2V 12/04/2023 4:35 PM FINDINGS: Bones/joints: Minimal fluid is identified within the glenohumeral joint, without significant effusion. No dislocation of the glenohumeral joint. 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 Marrow edema is identified within the lateral aspect of the clavicle and adjacent acromion process, likely secondary to arthropathy. Trauma is within the differential. Glenoid labrum: Blunting of the posterior aspect of the labrum is visualized. There is heterogeneous increased PD signal intensity of the posterosuperior aspect of the labrum. Labral tear cannot be excluded. Supraspinatus tendon: A full-thickness or high-grade partial tear is identified of the distal supraspinatus tendon. Minimal fluid is seen within the subdeltoid/subacromial bursa. Infraspinatus tendon: Increased PD signal intensity is visualized within the infraspinatus tendon, with tendinosis and partial tear. Subscapularis tendon: There is increased signal intensity in the region of the distal subscapularis tendon, suggestive of at least partial tear. Teres minor tendon: No evidence of tear. Tendon of biceps brachii: There is abnormal morphology of the long head biceps tendon within the proximal bicipital groove, with mild medial subluxation. Partial tear cannot be excluded. Glenohumeral ligaments: No visualized tear of the inferior glenohumeral ligament. Soft tissues: Minimal soft tissue edema is seen adjacent to the acromioclavicular joint. IMPRESSION: 1. A full-thickness or high-grade partial tear is identified of the distal supraspinatus tendon. Minimal fluid is seen within the subdeltoid/subacromial bursa. 2. Tendinosis and partial tear of the infraspinatus tendon. 3. There is increased signal intensity in the region of the distal subscapularis tendon, suggestive of tear. 4. There is abnormal morphology of the long head biceps tendon within the proximal bicipital groove, with mild medial subluxation. Partial tear cannot be excluded. 5. 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 6. Marrow edema is identified within the lateral aspect of the clavicle and adjacent acromion process, likely secondary to arthropathy. Trauma is within the differential. 7. Additional findings described above.
== END 2023-12-09 23:59 | disposition home or self-care (01) ==
LOC: RAD 07:23
PROVIDERS: PCP Internal Medicine; Visit Provider Internal Medicine
DX: S46.001A Unspecified injury of muscle(s) and tendon(s) of the rotator cuff of right shoulder, initial encounter (principal)
CPT/HCPCS: 73221

== ENCOUNTER 2023-12-18 16:44 | Outpatient (CLI) | payer OTHER, SELFPAY ==
[2023-12-18 17:27] LABS: Basophils % 0.9 % (0.1-2.0); Eosinophils # 0.1 K/mm3 (0.0-0.4); Eosinophils % 6.7 % (0.1-12.0); Hematocrit 36.8 % (37.0-47.0); Hemoglobin 12.6 g/dL (12.2-16.2); Lymphocytes # 0.8 K/mm3 (0.7-4.5); Lymphocytes % 39.5 % (10-50); Mean Corpuscular HGB Conc 34.2 g/dL (31.8-35.4); Mean Corpuscular Hemoglobin 29.6 pg (27.0-31.2); Mean Corpuscular Volume 86.7 fl (81-99); Mean Platelet Volume 8.3 fl (7.4-10.4); Monocytes # 0.2 K/mm3 (0.1-1.0); Monocytes % 9.5 % (1.7-9.3); Neutrophils # 0.8 K/mm3 (1.8-7.8); Neutrophils % 43.5 % (37.0-80.0); Platelet Count 76 K/mm3 (142-424); Red Blood Count 4.24 M/mm3 (4.20-5.40); Red Cell Distribution Width 15.7 % (11.5-17.5); White Blood Count 1.9 K/mm3 (4.8-10.8)
[2023-12-18 17:47] LABS: Chloride 110 mmol/L (98-107); Potassium 3.9 mmoL/L (3.5-5.1); Sodium 140 mmol/L (136-145)
[2023-12-18 17:49] LABS: Blood Urea Nitrogen 11 mg/dl (7-17); Estimated Glomerular Filt Rate 63 ml/min (>60); GFR (African American) 76 ML/MIN (>60)
[2023-12-18 17:50] LABS: Anion Gap 12.9 mEq/L (5-15); Carbon Dioxide 21 mmol/L (22.0-30.0); Glucose 97 mg/dl (74-100)
== END 2023-12-18 23:59 | disposition home or self-care (01) ==
LOC: LAB 16:45
PROVIDERS: PCP Internal Medicine; Visit Provider Orthopaedic Surgery
DX: Z01.818 Encounter for other preprocedural examination (principal)
CPT/HCPCS: 36415; 80048; 85025

== ENCOUNTER 2023-12-25 09:37 | Outpatient (CLI) | payer OTHER, SELFPAY ==
[2023-12-25 10:15] LABS: Basophils % 0.6 % (0.1-2.0); Eosinophils # 0.1 K/mm3 (0.0-0.4); Eosinophils % 5.8 % (0.1-12.0); Hematocrit 39.4 % (37.0-47.0); Hemoglobin 13.1 g/dL (12.2-16.2); Lymphocytes # 0.7 K/mm3 (0.7-4.5); Lymphocytes % 36.4 % (10-50); Mean Corpuscular HGB Conc 33.4 g/dL (31.8-35.4); Mean Corpuscular Hemoglobin 30.2 pg (27.0-31.2); Mean Corpuscular Volume 90.4 fl (81-99); Mean Platelet Volume 8.1 fl (7.4-10.4); Monocytes # 0.1 K/mm3 (0.1-1.0); Monocytes % 5.5 % (1.7-9.3); Neutrophils % 51.8 % (37.0-80.0); Platelet Count 74 K/mm3 (142-424); Red Blood Count 4.36 M/mm3 (4.20-5.40); Red Cell Distribution Width 15.6 % (11.5-17.5); White Blood Count 1.9 K/mm3 (4.8-10.8)
[2023-12-25 10:25] LABS: Activated Partial Thrombo Time 29.6 seconds (22.8-30.6); INR 1.12 (0.9-1.1); Prothrombin Time 12.4 seconds (10.1-12.5)
== END 2023-12-25 23:59 | disposition home or self-care (01) ==
LOC: LAB 09:37
PROVIDERS: PCP Internal Medicine; Visit Provider Internal Medicine Medical Oncology
DX: D61.818 Other pancytopenia (principal); D64.9 Anemia, unspecified
CPT/HCPCS: 36415; 85025; 85610; 85730

== ENCOUNTER 2023-12-27 09:23 | Outpatient (CLI) | payer OTHER, SELFPAY ==
--- NOTE | 2023-12-27 10:23 | ECG_ITS ---
APPROVED REPORT Exam: Resting ECG HR:82 bpm ECG Measurements Heart Rate 82 AXES OH 137 P 13 QRSd 99 QRS -13 QT 383 T 7 QTc 421 Conclusion SINUS RHYTHM VOLTAGE CRITERIA FOR LVH [MEETS CRITERIA IN ONE OF: R(aVL), S(V1), R(V5), R(V5/V6)+S(V1)] ABNORMAL ECG UNCONFIRMED REPORT Electronically signed by : Dionicio Bruno MD 01/07/2024 20:57:11
--- NOTE | 2023-12-27 10:33 | XR_ITS ---
PROCEDURE INFORMATION: Exam: XR Chest Exam date and time: 12/27/2023 10:35 AM Age: 63 years old Clinical indication: Other: HTN; Additional info: Preop clearance, HTN TECHNIQUE: Imaging protocol: Radiologic exam of the chest. Views: 2 views. COMPARISON: CR XR CHEST PORTABLE 03/25/2023 11:44 AM FINDINGS: Lungs: Unremarkable. No consolidation. Pleural spaces: Unremarkable. No pleural effusion. No pneumothorax. Heart/Mediastinum: Unremarkable. No cardiomegaly. Bones/joints: Unremarkable. IMPRESSION: No acute findings.
== END 2023-12-27 23:59 | disposition home or self-care (01) ==
LOC: PREOP 09:24
PROVIDERS: PCP Internal Medicine; Visit Provider Orthopaedic Surgery
DX: Z01.811 Encounter for preprocedural respiratory examination (principal); I10 Essential (primary) hypertension; R94.31 Abnormal electrocardiogram [ECG] [EKG]
CPT/HCPCS: 71046; 93005

== ENCOUNTER 2024-01-01 07:46 | Day surgery (SDC) | payer OTHER, SELFPAY ==
[2023-12-27 10:14] VITALS: BMI 35.2
[2024-01-01] VITALS (10 sets, daily range): BP systolic 119–144; BP diastolic 60–78; PULSE 70–94; RESP 16–24; TEMP 35.9–36.7; O2SAT 90–98
[2024-01-01] MEDS: LACTATED RINGERS 1000ML 1,000 ML 100 ML IV (08:03)
[2024-01-01 08:21] LABS: POC Glucose,Bedside 110 (70-110)
--- NOTE | 2024-01-01 08:51 | P.PNANES_ITS ---
[facility] Disclaimer: The information contained in this section may have been updated after the patient was seen, as this information can be updated by other users. Medical History Diabetes Arthritis Anemia Hypertension Surgical History History of liver biopsy History of esophagogastroduodenoscopy (EGD) H/O colonoscopy History of cholecystectomy History of partial hysterectomy Family History Father Heart attack Other Family history of COPD (chronic obstructive pulmonary disease) Family history of cancer Family history of hypertension Social History Smoking Status: Former smoker how long ago did patient quit smokin years alcohol intake: never substance use type: denies use current occupational status: employed and other Travel in the last 8 weeks: None adopted: No caregiver/support person: No foster care: No household members: none housing: house lives independently: Yes marital status: number of children: 1 service: No alf: No [facility] Anesthesia Checklist Patient Identification Patient Identification: Arm Band Structural Data Admitted From: Home Planned Operative Procedure/s: Right Shoulder Arthroscopy, Rotator Cuff Repair Consent for Planned Operative Procedure(s) Verified: Yes Verified Documents: Surgical Consent and History and Physical NPO Status Verified Time NPO: 00:00 Additional verifications Anesthesia Reactions: No Hx Blood Transfusions: Yes Blood Transfusion Reaction: No Airway Assessment Mallampati Score:: Class II C-Spine Mobility Assessed: Yes TMJ Mobility Assessed: Yes Dentition: Good Dentition Neurological Assessment Level of Consciousness: Awake, Alert and Appropriate Anesthesia Plan Anesthesia Risk discussed: Yes Anesthesia Plan: Verified ASA Class: III Anesthesia Type: General w/block (Right Interscalene Nerve Block. Risks/Benefits explained. Pt verbalizes understanding) Preoperative Comments Pre-Operative Comments: Pt with chronically low platelet count. Pt seen by Dr. Macias and pcp and cleared for surgery. Risks of bleeding during nerve block and surgery explained to pt. Pt verbalized understanding and wants to proceed.
[2024-01-01] MEDS: CLINDAMYCIN PHOSPHATE/D5W 900 MG/50 ML PIGGYBACK 100 MG IV (09:30)
[2024-01-01] MEDS: RINGERS SOLUTION,LACTATED 6,000 ML 500 ML IR (10:13)
[2024-01-01] MEDS: EPINEPHrine 1MG/ML 30ML VIAL 30 MG (10:39)
--- NOTE | 2024-01-01 10:53 | P.OP_ITS ---
Date of procedure: 01/01/24 Pre-op Diagnosis:: Right shoulder rotator cuff tear and impingement Post-op Diagnosis:: Same Procedure performed:: Right shoulder arthroscopy with rotator cuff repair Surgeon:: Danie Jerez DO Benefits Consulting Analyst(s):: Pietro HAWLEY MANAGER INTERMEDIATE:: Xenia Zhang Anesthesia: GETA and regional Estimated blood loss (mL): 0 Operative findings:: Full-thickness rotator cuff tear nonretracted Operative note:: Patient is identified preoperatively. Right shoulder marked with yes my initials. Underwent a block with anesthesia. Taken the operating room placed upon operating bed. General anesthesia administered airway was secured. Patient is then placed in a lateral position with a beanbag with all bony prominences well-padded. Right upper extremity was held inline traction with the arm kingston. Right upper extremity was then prepped and draped normal sterile fashion. Once prepped and draped final operative timeout performed to identify proper patient procedure and extremity. Everyone involved in the case agreed. No counter indications to beginning. Did receive preoperative antibiotics. Marking pen was used to david the bony landmarks of the shoulder and standard portal sites. Skin knife is used to incise standard posterior viewing portal. Blunt with trocar was placed in the glenohumeral joint and exchanged with a camera. Within the glenohumeral joint and moved just directly above the subscapularis tendon anteriorly where the anterior working portal was made. Purple cannula placed. Attention is brought to the intra-articular aspect of the shoulder. The biceps was seen and intact. Anterior and posterior labrum was intact. There is some slight fraying of the superior aspect of the subscapularis tendon. This was debrided glenoid cartilage is intact anterior glenoid labrum intact. Attention was brought superiorly the undersurface of the rotator cuff which revealed full-thickness tearing of the rotator cuff the undersurface was debrided with sucker shaver. Attention is brought and then the subacromial space. Within the subacromial space the lateral portal was established and exchanged with a passport cannula. Electrocautery was used for debridement of the subacromial bursa. There is no significant downward hooking of the acromion. Torn edge of the rotator cuff debrided. Footprint debrided. Attention was then brought to repair the rotator cuff fiber tape placed through the rotator cuff and placed into a swivel lock with a speed fix technique. This gave good repair of the rotator cuff back to the footprint. Camera was then removed the joint was drained skin closed with nylon stitch sterile dressing placed patient placed in a sling and pillow taken recovery in stable condition. Condition: stable Disposition: PACU Complications:: None apparent
--- NOTE | 2024-01-01 11:00 | P.PNANES_ITS ---
[facility] Anesthesia Record Part I Anesthesia Record I Intake, IV Amount: 800 Hydration: Adequate Estimated blood loss (mL): 25 Urine output (mL): 0 Blood Products used (#): none Blood Pressure: 133/73 SaO2: 90 Pulse Rate: 79 Airway Patency: Patent Respiratory Rate: 24 Temperature: 96.6 F Patient is:: Awake (Talking) and Stable Stable to PACU at:: 10:55
[2024-01-01 11:31] LABS: POC Glucose,Bedside 111 (70-110)
--- NOTE | 2024-01-01 14:40 | P.PNANES_ITS ---
[facility] Anesthesia Record Part II Anesthesia Record Part II Discharge Time: 11:20 Destination: Surgical Day Care (OP Surgery) PACU nurse assessment reviewed?: Yes Patient Condition:: Good Anesthesia Complications:: None Swallowing reflex intact?: Yes Airway Patency: Patent Cyanosis?: No Blood Pressure: 120/60 SaO2: 93 Respiratory Rate: 18 Pulse Rate: 72 Temperature: 98.0 F Mental Status: Alert & Oriented Pain level:: 0 Nausea and/or vomitting:: None Intake, IV Amount: 800 Hydration: Adequate
== END 2024-01-01 12:00 | disposition home or self-care (01) ==
PROVIDERS: PCP Internal Medicine; Visit Provider Orthopaedic Surgery
PROC: (CPT 29805; principal; 2024-01-01 09:30)
DX: M75.121 Complete rotator cuff tear or rupture of right shoulder, not specified as traumatic (principal)
CPT/HCPCS: 29827; 82962; 96374; J3490; C1713; C9144; C9290; J0171; J0736; J1100; J2250; J2405; J3010; J7120

== ENCOUNTER 2024-02-11 13:00 | Outpatient (RCR) | payer OTHER, SELFPAY ==
--- NOTE | 2024-01-21 14:50 | HMH.OTOPEV ---
OT Inpatient Evaluation Rehab OT Outpatient Eval Start: 01/21/24 14:14 Freq: Status: Active Protocol: Document 01/21/24 14:14 HIMANSHUJOSE (Rec: 01/21/24 14:37 GUILLAUMELAUREN [id number]) E-signed By Maryjo Beaver, OT Outpatient Therapy Subjective History Subjective History 63 year old female referred to skilled OP OT Services for R shld arthroscopy repair on . Patient is currently 3 weeks out from initial evaluation. Follow-up on with ortho. Patient reported being in pain for the past 6 months. MRI taken on R shld on 12/09/23: IMPRESSION: 1. A full-thickness or high- grade partial tear is identified of the distal supraspinatus tendon. Minimal fluid is seen within the subdeltoid/subacromial bursa. 2. Tendinosis and partial tear of the infraspinatus tendon. 3. There is increased signal intensity in the region of the distal subscapularis tendon, suggestive of tear. 4. There is abnormal morphology of the long head biceps tendon within the proximal bicipital groove, with mild medial subluxation. Partial tear cannot be excluded. 5. 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 6. Marrow edema is identified within the lateral aspect of the clavicle and adjacent acromion process, likely secondary to arthropathy. Trauma is within the differential. 7. Additional findings described above. New diagnosis of cancer in past 12 No months? Chief Complaint Pain Symptoms Aggravated By Supine Prior Functional Limitations Reaching,Lifting Current Functional Limitations Reaching,Lifting Symptom Description Constant and Continuous Level of pain today (0-10) 2 Pain scale - at its best (0-10) 2 Pain scale - at its worst (0-10) 4 Shoulder/Elbow Eval Shoulder Objective Measurements Shoulder ROM Right Shoulder Abduction Active Range of 0 Motion (degrees) Shoulder Flexion Active Range of Motion 0 (degrees) Query Text: Shoulder Flexion Passive Range of Motion 90 (degrees) Shoulder External Rotation Passive Range 0 of Motion (degrees) Shoulder Internal Rotation Passive Range 0 of Motion (degrees) Shoulder Extension Passive Range of 0 Motion (degrees) pain with active ROM shoulder exam right standard Shoulder MMT Shoulder Abduction Strength Grade Not Tested Shoulder Extension Strength Grade Not Tested Shoulder Flexion Strength Grade 2 Poor Shoulder Horizontal Abduction Strength Not Tested Grade Shoulder Horizontal Adduction Strength Not Tested Grade Infraspinatus/Teres Minor Strength Grade Not Tested Shoulder External Rotation Strength Not Tested Grade Shoulder Internal Rotation Strength Not Tested Grade Elbow Objective Measurements QuickDASH Activities Please rate your ability to do the following activities in the last week by selecting the number below the appropriate response. 1. Open a tight or new jar. Moderate difficulty 2. Do heavy rejected items clerk (e.g., wash Moderate difficulty ugarte, floors). 3. Carry a shopping bag or briefcase. Moderate difficulty 4. Wash your back. Moderate difficulty 5. Use a knife to cut food. Moderate difficulty 6. Recreational activities in which you Moderate difficulty take some force or impact through your arm, shoulder, or hand (e.g., golf, hammering, tennis, etc.). 7. During the past week, to what extent Moderately has your arm, shoulder or hand problem interfered with your normal social activities with family, friends, neighbors or groups? 8. During the past week, were you Moderately limited limited in your work or other regular daily activites as a result of your arm, shoulder or hand problem? 9. Arm, shoulder or hand pain. Moderate 10. Tingling (pins and needles) in your Moderate arm, shoulder or hand. 11. During the past week, how much Mild difficulty difficulty have you had sleeping because of the pain in your arm, shoulder or hand? Quick DASH 32 OT Outpatient Assessment Impairments Problems/Impairments Impaired Range of Motion, Impaired Strength,Subjective C /O Pain Prognosis Rehab Potential Good Clinical Impression Consistent with Diagnosis Yes Short Term Goals Number of Weeks 2 Increase Range of Motion Yes: Improve PROM of R UE shld flex: 110; abd: 40 Increase Strength Yes: Improve R UE hand radiology aide: 35# Decrease Subjective C/O Pain Yes: 3/10 pain at worst Patient to be Ind w/ HEP Yes: PROM Patient to be Ind w/ Advanced HEP Yes: Hand strengthening Improve Quick Dash Score Yes: 29 Snf Goals Number of Weeks 4 Increase Range of Motion Yes: Improve PROM of R UE shld flex: 130; abd: 60 Increase Strength Yes: Improve R UE hand radiology aide: 45# Decrease Subjective C/O Pain Yes: 2/10 pain at worst Patient to be Ind w/ HEP Yes: AAROM Patient to be Ind w/ Advanced HEP Yes: Advance hand radiology aide strengthening Improve Quick Dash Score Yes: 26 Outpatient Therapy Plan of Care Treatment Plan May Include Therapeutic Exercise Including Home Yes Exercise Program Manual Therapy Techniques Yes Therapeutic Activities to Return to Yes Previous Functional/Work Level Thermal Modalities Yes Electrical Stimulation Yes Ultrasound/Phonophoresis Yes Iontophoresis Yes Eval/Re-Eval Yes Aquatic Therapy Yes Frequency Times per week 2x/wk Duration Number of Weeks 4 weeks Addendums This patient is a candidate for social No or vocational rehab? Patient/Guardian verbally acknowledges Yes understanding of treatment program and consents to further treatment? Patient/Guardian verbally acknowledges Yes understanding of diagnosis, prognosis and goals for treatment? Eval Complexity OT Charge 14155 - Low Complexity PHYSICIAN CERTIFICATION: I certify the specified therapy services for Radha Alexander are required, authorized, and reviewed every 30 days.
== END 2024-02-11 23:59 | disposition home or self-care (01) ==
LOC: OT 13:00
PROVIDERS: PCP Internal Medicine; Visit Provider Orthopaedic Surgery
DX: M25.511 Pain in right shoulder (principal); Z98.890 Other specified postprocedural states
CPT/HCPCS: 97014; 97110; 97140; 97165; 97530; G0283

== ENCOUNTER 2024-03-10 14:00 | Outpatient (RCR) | payer OTHER, SELFPAY | END 2024-03-10 23:59 | disposition home or self-care (01) | LOC: OT 14:00 | PROVIDERS: PCP Internal Medicine; Visit Provider Orthopaedic Surgery | DX: M25.511 Pain in right shoulder (principal); Z98.890 Other specified postprocedural states | CPT/HCPCS: 97014; 97110; 97140; 97168; 97530; G0283 ==

== ENCOUNTER 2024-03-30 16:40 | Outpatient (CLI) | payer OTHER, SELFPAY ==
--- NOTE | 2024-03-30 16:40 | MM_ITS ---
PROCEDURE INFORMATION: Exam: MG Bilateral Screening 3D Mammography Exam date and time: 03/30/2024 4:47 PM Age: 63 years old Clinical indication: Screening examination. TECHNIQUE: Imaging protocol: Bilateral Screening tomosynthesis and 2D mammography including computer-aided detection (CAD) when performed. COMPARISON: 1. MG MM DIG SCREENING MAMM BI W/CAD 02/05/2023 4:28 PM 2. MG MM DIG SCREENING MAMM BI W/CAD 01/01/2022 4:59 PM FINDINGS: MAMMOGRAPHY: Breast composition: There are scattered areas of fibroglandular density. Mass: None. Architectural distortion: None. Calcifications: No suspicious calcifications. Asymmetric density: None. Skin thickening: None. Axillary adenopathy: None. IMPRESSION: No mammographic evidence of malignancy. Annual screening is recommended unless otherwise clinically indicated. ASSESSMENT: BI-RADS Category 1: Negative.
== END 2024-03-30 23:59 | disposition home or self-care (01) ==
LOC: RAD 16:40
PROVIDERS: PCP Internal Medicine; Visit Provider Internal Medicine
DX: Z12.31 Encounter for screening mammogram for malignant neoplasm of breast (principal)
CPT/HCPCS: 77063; 77067

== ENCOUNTER 2024-05-07 07:13 | Outpatient (CLI) | payer OTHER, SELFPAY ==
--- NOTE | 2024-05-07 07:30 | US_ITS ---
FINAL REPORT TECHNIQUE: Sonographic images of the right upper quadrant were obtained. CLINICAL HISTORY: Cirrhosis-rule out HCC FINDINGS: PANCREAS: Pancreatic tail is obscured but the head appears normal.. LIVER: Enlarged. Slightly nodular contour. Portal vein is patent with normal directional flow. No focal hepatic lesion. No intrahepatic biliary ductal dilatation. GALLBLADDER: Absent. COMMON DUCT: 5 mm. Normal for age. RIGHT KIDNEY: The right kidney measures 10.4 cm. There is no hydronephrosis, mass, or stone. Mild cortical thinning. FREE FLUID: None. IMPRESSION: Enlarged nodular liver most consistent with cirrhosis. No evidence of mass. Right renal cortical thinning. Reviewed, Interpreted and Dictated by Mahsa Riley MD Transcribed by Vero Mckinley Authenticated and [facility]
== END 2024-05-07 23:59 | disposition home or self-care (01) ==
LOC: RAD 07:14
PROVIDERS: PCP Internal Medicine; Visit Provider Internal Medicine Gastroenterology
DX: K71.7 Toxic liver disease with fibrosis and cirrhosis of liver (principal); T45.1X5A Adverse effect of antineoplastic and immunosuppressive drugs, initial encounter
CPT/HCPCS: 76705

== ENCOUNTER 2024-06-02 09:46 | Outpatient (CLI) | payer OTHER, SELFPAY ==
[2024-06-02 10:13] LABS: Basophils % 0.5 % (0.1-2.0); Eosinophils # 0.2 Kmm3 (0.0-0.4); Eosinophils % 8.1 % (0.1-12.0); Hematocrit 36.7 % (37.0-47.0); Hemoglobin 12.2 g/dL (12.2-16.2); Lymphocytes # 0.7 K/mm3 (0.7-4.5); Lymphocytes % 31.4 % (10-50); Mean Corpuscular HGB Conc 33.2 g/dL (31.8-35.4); Mean Corpuscular Hemoglobin 29.8 pg (27.0-31.2); Mean Corpuscular Volume 89.7 fl (81-99); Mean Platelet Volume 10.2 fl (7.4-10.4); Monocytes # 0.2 K/mm3 (0.1-1.0); Neutrophils # 1.1 K/mm3 (1.8-7.8); Neutrophils % 50.5 % (37.0-80.0); Nucleated Red Blood Cells # 0 10^3/uL; Nucleated Red Blood Cells % 0 %; Platelet Count 76 K/mm3 (142-424); Red Blood Count 4.09 M/mm3 (4.20-5.40); Red Cell Distribution Width 14.7 % (11.5-17.5); Red Cell Distribution Width-SD 48.3 fL; White Blood Count 2.1 K/mm3 (4.8-10.8)
[2024-06-02 10:29] LABS: INR 1.13 (0.9-1.1); Prothrombin Time 12.5 seconds (10.1-12.5)
[2024-06-02 10:34] LABS: Alanine Aminotransferase 24 U/L (12-78); Albumin Level 3.7 g/dl (3.5-5.0); Albumin/Globulin Ratio 0.8 (1.1-1.8); Alkaline Phosphatase 51 U/L (38-126); Anion Gap 9.2 mEq/L (5-15); Aspartate Amino Transferase 55 U/L (14-36); Bilirubin,Total 1.2 mg/dl (0.2-1.3); Blood Urea Nitrogen 13 mg/dl (7-17); Calcium 9.8 mg/dl (8.4-10.2); Carbon Dioxide 24 mmol/L (22.0-30.0); Chloride 113 mmol/L (98-107); Estimated Glomerular Filt Rate 72 ml/min (>60); GFR (African American) 87 ML/MIN (>60); Globulin 4.5 g/dL (1.3-3.2); Glucose 99 mg/dl (74-100); Potassium 4.2 mmoL/L (3.5-5.1); Sodium 142 mmol/L (136-145); Total Protein,Serum 8.2 g/dl (6.3-8.2)
== END 2024-06-02 23:59 | disposition home or self-care (01) ==
LOC: LAB 09:46
PROVIDERS: PCP Internal Medicine; Visit Provider Internal Medicine Gastroenterology
DX: K71.7 Toxic liver disease with fibrosis and cirrhosis of liver (principal); T45.1X5A Adverse effect of antineoplastic and immunosuppressive drugs, initial encounter; B19.20 Unspecified viral hepatitis C without hepatic coma
CPT/HCPCS: 36415; 80053; 82105; 85025; 85610

== ENCOUNTER 2024-10-08 08:13 | Emergency (ER) | payer OTHER, SELFPAY ==
[2024-10-08] VITALS (12 sets, daily range): BP systolic 117–175; BP diastolic 59–86; PULSE 96–106; RESP 17–20; TEMP 36.6–36.8; O2SAT 100; BMI 35.5
--- NOTE | 2024-10-08 08:24 | XR_ITS ---
FINAL REPORT CLINICAL HISTORY: Knee pain, ecchymosis extending down calf FINDINGS: AP, lateral and oblique views of the left knee were obtained. There is no prior exam for comparison. There is no acute osseous abnormality of the left knee. There is degenerative joint disease. The soft tissues are normal. There is no significant joint effusion. IMPRESSION: Degenerative joint disease. Reviewed, Interpreted and Dictated by Mahsa Riley MD Transcribed by Natividad Andrews Authenticated and [facility]
--- NOTE | 2024-10-08 08:24 | CA_ITS ---
FINAL REPORT CLINICAL HISTORY: LLE edema, ecchymosis. HTN, pre diabetes. Left calf pain since 10/04. No known trauma. Recent long travel. FINDINGS: DUPLEX VENOUS SONOGRAPHY OF THE LEFT LOWER EXTREMITY Multiple transverse and longitudinal scans were performed of the femoropopliteal deep venous system, with augmentation and compression maneuvers. FINDINGS: Normal phasic flow was noted in the visualized deep venous system. No intraluminal increased echogenicity is noted to suggest thrombus. There is normal compression and augmentation of the venous structures. No abnormal venous collaterals are seen. Popliteal cyst is present. There is a second elliptical hypoechoic lesion in the mid proximal posterior calf. Is unclear on these images whether the abnormality in the calf communicates with the popliteal cyst. This may be a very large popliteal cyst or may be a separate hematoma. IMPRESSION: No evidence of deep venous thrombosis of the left lower extremity. Popliteal cyst. Hypoechoic abnormality in the left proximal calf with internal echoes but no internal blood flow. Favor hematoma and likely separate. Consider MRI if further evaluate needed Reviewed, Interpreted and Dictated by Mahsa Riley MD Transcribed by Vero Mckinley Authenticated and [facility]
--- NOTE | 2024-10-08 08:28 | XR_ITS ---
FINAL REPORT CLINICAL HISTORY: Knee pain, ecchymosis and pain in calf FINDINGS: AP and lateral views of the left tibia and fibula were obtained. There is no prior exam for comparison. There is no acute fracture of the left tibia or fibula. The knee and ankle appear intact. There is soft tissue edema. IMPRESSION: Soft tissue edema without acute osseous abnormality. Reviewed, Interpreted and Dictated by Mahsa Riley MD Transcribed by Natividad Andrews Authenticated and [facility]
--- NOTE | 2024-10-08 08:32 | HMH.EDGENADL ---
Discharge Plan Disposition Patient Disposition: Home, Self-Care Condition: Good Prescriptions Prescriptions: No Action carvedilol 3.125 mg tablet 3.125 mg PO BID Qty: 60 10RF Rx Instructions: Take 12 hours apart. Please keep BP log and bring to follow up visits must administer with a meal/food apremilast 30 MG tablet 30 mg PO BID metformin 500 mg tablet 500 mg PO BID Referrals Follow up/Referrals: Danie Jerez DO [Staff Physician, Orthopedics] - See instructions Roly Delong DO [Primary Care Provider, Family Practice] - See instructions Activity Restrictions/Add. Instructions Additional Instructions/Restrictions: Please call Dr. Jerez's office this afternoon and request an appointment for further evaluation of your knee and pain in the calf. If you experience any new or worsening symptoms please return. Clinical Impressions Clinical Impression: Localized soft tissue swelling Calf pain Qualifiers: Laterality: left Qualified Code(s): M79.662 - Pain in left lower leg Print Language Print Language: [place]i Discharge ED Provider: Demarcus Lacey Adult HPI General Chief complaint: PAIN Stated complaint: back of leg swollen, bruised -Left Time Seen by Provider: 10/08/24 08:20 History of Present Illness HPI narrative: This is a 63-year-old female patient, with past medical history of hypertension, prediabetes, and psoriatic arthritis on Otezla, who is presenting to the emergency department today for evaluation of left knee and calf pain. Patient states that over the weekend she was doing an abundance of walking and she began experiencing pain in the calf. She as of this morning has now developed circumstantial swelling of the left lower extremity with tense calf. She states that after arriving to work this morning she noticed that there was some ecchymosis developing on the posterior aspect of the calf as well. She states that her pain is relatively well-controlled when she is sitting down but when she bears weight this pain gets significantly worse. She has no history of bleeding diathesis. No history of injury to the joint. She has not had any recent falls. No history of blood clots. She is on no anticoagulants. Related Data Home Medications ?Medication ?Instructions ?Recorded ?Confirmed apremilast 30 mg tablet 30 mg PO BID PSORIASIS 12/18/19 10/08/24 metformin 500 mg tablet 500 mg PO BID 10/08/24 10/08/24 Previous Rx's ?Medication ?Instructions ?Recorded carvedilol 3.125 mg tablet 3.125 mg PO BID prevention of 08/26/24 variceal bleed #60 tabs Allergies Allergy/AdvReac Type Severity Reaction Status Date / Time levofloxacin (From LEVAQUIN) Allergy Intermediate I-HIVES Verified 08/03/24 12:04 Penicillins (PENICILLINS) Allergy Intermediate I-HIVES Verified 08/03/24 12:04 Sulfa (Sulfonamide Allergy Intermediate I-HIVES Verified 08/03/24 12:04 Antibiotics) (SULFA (SULFONAMIDE ANTIBIOTICS)) aspirin (ASPIRIN) AdvReac Unknown Other Verified 08/03/24 12:04 [facility] Disclaimer: The information contained in this section may have been updated after the patient was seen, as this information can be updated by other users. Medical History Diabetes Arthritis Anemia Hypertension Surgical History H/O repair of rotator cuff History of liver biopsy History of esophagogastroduodenoscopy (EGD) H/O colonoscopy > 5 year History of cholecystectomy History of partial hysterectomy pre-cancerous late 30's Family History Father Heart attack Other Family history of COPD (chronic obstructive pulmonary disease) Family history of cancer Family history of hypertension Social History Smoking Status: Never smoker how long ago did patient quit smokin years alcohol intake: never substance use type: denies use current occupational status: employed and other Travel in the last 8 weeks?: None adopted: No caregiver/support person: No foster care: No household members: none housing: house lives independently: Yes marital status: number of children: 1 service: No [place] [facility] [place]: No Have you lived/traveled outside US in past 30 days?: No Contact w/someone who lives/traveled outside US past 30 days?: No Exposure to someone with infectious disease in past 14 days?: No Do you have a fever (greater than 100.4 F or 38 C)?: No Have you tested positive for COVID-19?: No Exposed to someone with COVID-19 in past 14 days?: No Do you have a sore throat?: No Do you have a cough?: No Do you have any weakness?: No Do you have any diarrhea?: No Are you experiencing any unusual bleeding?: No Do you have any muscle aches/pain?: No Do you have any abdominal pain?: No Are you experiencing loss of taste or smell?: No Other Medical History Have you received the Flu Vaccine for this season: No Have you received the Pneumonia Vaccine: Yes ROS Obtained: Yes Systems reviewed as appropriate & no additional complaints except as documented Physical Exam General General appearance: other (See MDM) Respiratory Respiratory exam: Present other (See MDM) Cardiovascular Cardiovascular exam: Present other (See MDM) Neurological Exam Neurological exam: Present other (See MDM) Medical Decision Making Medical Records Medical records reviewed: Yes I reviewed the patient's medical records. Screening: Per USPSTF and CDC recommendations, given the prevalence of disease in our region, it is our hospital?s policy to screen for HIV and viral Hepatitis for all patients aged 18 and over and those with ongoing risk factors. Christopher Inquiry Pt receiving controlled substance: No Christopher was queried for this patient: No Vital Signs: 10/08/24 08:19 10/08/24 08:24 10/08/24 08:28 Temperature 98.2 F Temperature Source Oral Pulse Rate 104 H 106 H Pulse Rate [Right Brachial] 104 H Respiratory Rate 20 Blood Pressure 164/86 H 156/80 H Blood Pressure [Right Arm] 164/86 H Blood Pressure Mean Blood Pressure Mean [Right Arm] 112 Blood Pressure Source [Right Arm] Automatic Cuff Blood Pressure Position [Right Arm] Sitting 02 Sat by Pulse Oximetry 100 100 100 Oxygen Delivery Method Room Air 10/08/24 09:00 10/08/24 09:15 10/08/24 09:30 Temperature Temperature Source Pulse Rate Pulse Rate [Right Brachial] Respiratory Rate Blood Pressure 117/60 147/67 H 135/62 Blood Pressure [Right Arm] Blood Pressure Mean 92 93 86 Blood Pressure Mean [Right Arm] Blood Pressure Source [Right Arm] Blood Pressure Position [Right Arm] 02 Sat by Pulse Oximetry Oxygen Delivery Method 10/08/24 09:45 10/08/24 10:00 10/08/24 10:45 Temperature Temperature Source Pulse Rate Pulse Rate [Right Brachial] Respiratory Rate Blood Pressure 132/64 124/59 L 142/65 H Blood Pressure [Right Arm] Blood Pressure Mean 86 80 89 Blood Pressure Mean [Right Arm] Blood Pressure Source [Right Arm] Blood Pressure Position [Right Arm] 02 Sat by Pulse Oximetry Oxygen Delivery Method 10/08/24 11:00 10/08/24 11:15 Temperature Temperature Source Pulse Rate Pulse Rate [Right Brachial] Respiratory Rate Blood Pressure 126/63 126/66 Blood Pressure [Right Arm] Blood Pressure Mean 84 76 Blood Pressure Mean [Right Arm] Blood Pressure Source [Right Arm] Blood Pressure Position [Right Arm] 02 Sat by Pulse Oximetry Oxygen Delivery Method Lab Data Lab Results 10/08/24 08:35: WBC 2.5 L, RBC 3.98 L, Hgb 10.9 L, Hct 33.7 L, MCV 84.7, MCH 27.4, MCHC 32.3, RDW 14.9, Plt Count 100 L, MPV 10.6 H, Neut % (Auto) 61.2, Lymph % (Auto) 25.7, Cross % (Auto) 8.6, Eos % (Auto) 4.1, Baso % (Auto) 0.4, Neut # (Auto) 1.5 L, Lymph # (Auto) 0.6 L, Cross # (Auto) 0.2, Eos # (Auto) 0.1, Baso # (Auto) 0.0, PT 13.0 H, INR 1.19 H, Sodium 139, Potassium 4.2, Chloride 112 H, Carbon Dioxide 19 L, Anion Gap 12.2, BUN 16, Creatinine 0.80, Estimated Creat Clear 90, Estimated GFR 72, Est GFR ( Amer) 87, Glucose 172 H, Calcium 10.9 H, Total Bilirubin 1.1, AST 51 H, ALT 23, Alkaline Phosphatase 65, Total Protein 8.3 H, Albumin 4.1, Globulin 4.2 H, Albumin/Globulin Ratio 1.0 L 10/08/24 08:35 10/08/24 08:35 Orders (Tests/Meds): ORDERS Category Date Time Status Fibula/tibia XR left 2 views [XR tibia fibula LT 2V] Exams 10/08/24 08:28 Completed Stat Knee XR left 3 views [XR knee LT 3V] Stat Exams 10/08/24 08:24 Completed POCUS Point of Care (ER Only) Stat Exams 10/08/24 10:57 Completed CBC w/Auto Diff [Complete Blood Count Auto Diff] Stat Lab 10/08/24 08:35 Completed CMP [Comprehensive Metabolic Panel] Stat Lab 10/08/24 08:35 Completed PT/INR [Prothrombin Time INR] Stat Lab 10/08/24 08:35 Completed CA venous doppler LE LT Stat Y 10/08/24 08:24 Completed Medical Decision Narrative: In summary, this is a 63-year-old female patient who is presented to the emergency department today for evaluation of left knee and calf pain with circumvents of swelling of the lower extremity below the knee and ecchymosis appearing on the left calf. Comorbidities include a history of hypertension, prediabetes, and psoriatic arthritis on Otezla. On initial evaluation of the patient they were resting comfortably in no acute distress and nontoxic in appearance. They are hemodynamically stable, saturating well room air, and are neurologically intact. On physical examination of the patient she is appropriately alert and oriented. Heart and lungs are clear to auscultation. She is experiencing tenderness about the left knee. She has circumferential swelling of the left lower extremity below the knee. She has pitting edema in the pretibial region and she has ecchymosis on the posterior calf. The skin overlying her calf is tense. She has no exacerbation of pain with active or passive dorsiflexion/plantarflexion of the foot. She has normal sensation of the left lower extremity. Differential diagnosis includes DVT, bleeding diathesis, hemarthrosis, tibial plateau fracture, muscle tear, muscle strain, among others. Initial workup included hematologic labs including a PT/INR as well as an x-ray of the left knee and left tib-fib and a DVT study of the left lower extremity. DVT study of the left lower extremity was interpreted by radiology and demonstrates no evidence of DVT. There is a popliteal cyst noted on this examination. X-ray of the knee and tib-fib ordered first interpreted by me and demonstrate no evidence of fracture or dislocation. Official radiology read is in agreement and states there is no acute abnormality. Labs were personally turbid by me and demonstrate no abnormalities well. Coags are normal. I did perform a bedside POCUS assessment of the patient's left lower extremity to further visualize the cyst in the popliteal region. It does have mixed echogenicity. Unclear if this is hematoma from associated muscle tear giving rise to the ecchymosis noted in her calf on exam or whether this is a true popliteal cyst such as a Newsome's cyst. I have asked patient to follow-up with Dr. Macario Caputo in clinic for orthopedic evaluation. I have recommended ice and compressive dressings at home. at this time all questions have been answered and all parties are agreeable with the decision to discharge home Critical Care Critical Care Time Critical Care Time: No
--- OUTSIDE RECORDS SUMMARY | 2024-10-08 08:37 | XMS_ITS ---
Author Organization Unknown TREATMENT PLAN Planned Care Start Date Provider Encounter for Check-up [id number] [facility]
[2024-10-08 08:46] LABS: Hematocrit 33.7 % (37.0-47.0); Hemoglobin 10.9 g/dL (12.2-16.2); Immature Granulocytes % 0 %; Mean Corpuscular HGB Conc 32.3 g/dL (31.8-35.4); Mean Corpuscular Hemoglobin 27.4 pg (27.0-31.2); Mean Corpuscular Volume 84.7 fl (81-99); Nucleated Red Blood Cells % 0 %; Platelet Count 100 K/mm3 (142-424); Red Blood Count 3.98 M/mm3 (4.20-5.40); Red Cell Distribution Width-SD 45.6 fL; White Blood Count 2.5 K/mm3 (4.8-10.8)
[2024-10-08 09:06] LABS: Potassium 4.2 mmoL/L (3.5-5.1)
[2024-10-08 09:09] LABS: Aspartate Amino Transferase 51 U/L (14-36); Bilirubin,Total 1.1 mg/dl (0.2-1.3); Blood Urea Nitrogen 16 mg/dl (7-17); Calcium 10.9 mg/dl (8.4-10.2); Creatinine Clearance Estimated 90 mL/min (50-200); Creatinine,Serum 0.80 mg/dl (0.52-1.04); Estimated Glomerular Filt Rate 72 ml/min (>60); GFR (African American) 87 ML/MIN (>60); Glucose 172 mg/dl (74-100); Total Protein,Serum 8.3 g/dl (6.3-8.2)
[2024-10-08 09:10] LABS: INR 1.19 (0.9-1.1); Prothrombin Time 13.0 seconds (10.1-12.5)
[2024-10-08 09:28] LABS: Chloride 112 mmol/L (98-107)
[2024-10-08 09:29] LABS: Albumin Level 4.1 g/dl (3.5-5.0); Albumin/Globulin Ratio 1.0 (1.1-1.8); Globulin 4.2 g/dL (1.3-3.2); Sodium 139 mmol/L (136-145)
[2024-10-08 09:31] LABS: Alanine Aminotransferase 23 U/L (12-78); Anion Gap 12.2 mEq/L (5-15); Carbon Dioxide 19 mmol/L (22.0-30.0)
[2024-10-08 09:32] LABS: Alkaline Phosphatase 65 U/L (38-126)
== END 2024-10-08 12:31 | disposition home or self-care (01) ==
PROVIDERS: Emergency Provider Student in an Organized Health Care Education/Training Program; PCP Internal Medicine
DX: M79.669 Pain in unspecified lower leg (principal); R22.9 Localized swelling, mass and lump, unspecified; I10 Essential (primary) hypertension; G47.00 Insomnia, unspecified
CPT/HCPCS: 73562; 73590; 80053; 85025; 85610; 93971; 99283; 99285

== ENCOUNTER 2024-10-19 06:26 | Day surgery (SDC) | payer OTHER, SELFPAY ==
--- NOTE | 2024-10-15 06:56 | P.HP_ITS ---
History of Present Illness *Admission Date: 10/19/24 *History of present illness: Mrs. Alexander is a 63-year-old female who is here for diagnostic upper endoscopy and screening colonoscopy. 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 She has known cirrhosis felt related to long-term methotrexate use. Her FibroSure indeed showed advanced hepatic fibrosis with stage F4 fibrosis?cirrhosis which is well compensated. She has had no increased abdominal girth, cognitive impairment, melena or hematochezia. She did have an EGD with Daniel Ty MD showing grade 3 esophageal varices which were not banded. She is due for repeat surveillance colonoscopy this year due to a personal history of adenomatous colon polyps. She has no complaints. She is on carvedilol. I had indicated that MENDEZ also plays a role with methotrexate hepatotoxicity and is a concurrent etiology. The patient's last liver ultrasound was approximately 6 months ago and showed nodular margin of the liver consistent with cirrhosis and portal vein enlargement with probable portal hypertension. She does have a mildly dilated common bile duct of 9 mm presumably secondary to her prior cholecystectomy. She reports no abdominal pain. [facility] Disclaimer: The information contained in this section may have been updated after the patient was seen, as this information can be updated by other users. Medical History Diabetes Arthritis Anemia Hypertension Surgical History H/O repair of rotator cuff History of liver biopsy History of esophagogastroduodenoscopy (EGD) H/O colonoscopy > 5 year History of cholecystectomy History of partial hysterectomy pre-cancerous late 30's Family History Father Heart attack Other Family history of COPD (chronic obstructive pulmonary disease) Family history of cancer Family history of hypertension Social History (Updated 10/19/24 @ 06:59 by Linda Ya RN) Smoking Status: Never smoker how long ago did patient quit smokin years alcohol intake: never substance use type: denies use current occupational status: employed Travel in the last 8 weeks?: Inside the [place] adopted: No caregiver/support person: No foster care: No household members: none housing: house lives independently: Yes marital status: number of children: 1 service: No senior care: No caffeine: No Have you lived/traveled outside US in past 30 days?: No Contact w/someone who lives/traveled outside US past 30 days?: No Exposure to someone with infectious disease in past 14 days?: No Do you have a fever (greater than 100.4 F or 38 C)?: No Have you tested positive for COVID-19?: No Exposed to someone with COVID-19 in past 14 days?: No Do you have a sore throat?: No Do you have a cough?: No Do you have any weakness?: No Are you experiencing any nausea/vomitting?: No Do you have any diarrhea?: No Are you experiencing any unusual bleeding?: No Do you have any muscle aches/pain?: No Do you have any abdominal pain?: No Are you experiencing loss of taste or smell?: No Other Medical History Have you received the Flu Vaccine for this season: No Have you received the Pneumonia Vaccine: Yes Review of Systems Review of Systems Review of systems (narrative): Negative *Cardiovascular Comments: Negative *Gastrointestinal Comments: Negative *Genitourinary Comments: Negative *Musculoskeletal Comments: Negative *Neurologic Comments: Negative Meds Home Medications and Allergies Home Medications ?Medication ?Instructions ?Recorded ?Confirmed ?Type apremilast 30 mg tablet 30 mg PO BID PSORIASIS 12/1710/19/24 History carvedilol 3.125 mg tablet 3.125 mg PO BID prevention of 08/26/24 10/19/24 Rx variceal bleed #60 tabs metformin 500 mg tablet 500 mg PO BID 10/08/2410/19 History quetiapine 50 mg tablet 50 mg PO DAILY 10/15/2410/05 History New Prescriptions to Start Prescriptions: Allergies Allergy/AdvReac Type Severity Reaction Status Date / Time levofloxacin (From LEVAQUIN) Allergy Intermediate I-HIVES Verified 10/19/24 06:49 Penicillins (PENICILLINS) Allergy Intermediate I-HIVES Verified 10/19/24 06:49 Sulfa (Sulfonamide Allergy Intermediate I-HIVES Verified 10/19/24 06:49 Antibiotics) (SULFA (SULFONAMIDE ANTIBIOTICS)) aspirin (ASPIRIN) AdvReac Unknown Other Verified 10/19/24 06:49 Exam *Routine HEENT Exam Head: Present normocephalic Eye: Present EOMI and PERRL ENT: Present mucous membranes moist *Routine Neck Exam Neck: Present supple *Routine Respiratory Exam Respiratory: Present CTA bilaterally *Routine Cardiovascular Exam Cardiovascular: Present RRR *Routine Abdominal Exam Abdominal: Present soft and normoactive bowel sounds; Absent tenderness *Routine Rectal Exam Rectal:: deferred *Routine Genitalia Exam Genitalia:: deferred *Routine Extremities Exam Extremities: Absent cyanosis, clubbing or edema *Routine Skin Exam Skin: Present warm; Absent rash *Routine Neurological Exam Neurological: Present alert and oriented X3 Assessment and Plan *Assessment and plan (1) Esophageal varices: Status: Acute Qualifiers: Esophageal varices bleeding: without bleeding Esophageal varices type: secondary Qualified Code(s): I85.10 - Secondary esophageal varices without bleeding Category: Medical Code(s): I85.00 - Esophageal varices without bleeding (2) Portal hypertension: Status: Acute Category: Medical Code(s): K76.6 - Portal hypertension (3) Personal history of adenomatous and serrated colon polyps: Status: Acute Category: Medical Code(s): Z86.0101 - Personal history of adenomatous and serrated colon polyps (4) Screening for colon cancer: Status: Acute Category: Medical Code(s): Z12.11 - Encounter for screening for malignant neoplasm of colon Plan A/P: 1. Portal hypertension with larger grade 3 varices and cirrhosis for upper endoscopy and personal history of adenomatous colon polyps and screening for colon cancer for colonoscopy is the preprocedural diagnosis. The patient will be anesthetized/sedated using MAC sedation. The patient has been seen and examined. Cardiac and lung assessment prior to the examination is stable. Proceed with planned EGD and colonoscopy.
[2024-10-15 12:57] VITALS: BMI 35.5
[2024-10-19 06:44] VITALS: BP 151/77; PULSE 97; RESP 16; TEMP 36.1; O2SAT 97
[2024-10-19] MEDS: LACTATED RINGERS 1000ML 1,000 ML 50 ML IV (07:02)
[2024-10-19 07:08] LABS: POC Glucose,Bedside 121 gm/dL (70-110)
--- NOTE | 2024-10-19 07:16 | P.PNANES_ITS ---
[facility] Disclaimer: The information contained in this section may have been updated after the patient was seen, as this information can be updated by other users. Medical History Diabetes Arthritis Anemia Hypertension Surgical History H/O repair of rotator cuff History of liver biopsy History of esophagogastroduodenoscopy (EGD) H/O colonoscopy > 5 year History of cholecystectomy History of partial hysterectomy pre-cancerous late 30's Family History Father Heart attack Other Family history of COPD (chronic obstructive pulmonary disease) Family history of cancer Family history of hypertension Social History (Updated 10/19/24 @ 06:59 by Linda Ya RN) Smoking Status: Never smoker how long ago did patient quit smokin years alcohol intake: never substance use type: denies use current occupational status: employed Travel in the last 8 weeks?: Inside the [facility] adopted: No caregiver/support person: No foster care: No household members: none housing: house lives independently: Yes marital status: number of children: 1 service: No usp: No caffeine: No Have you lived/traveled outside US in past 30 days?: No Contact w/someone who lives/traveled outside US past 30 days?: No Exposure to someone with infectious disease in past 14 days?: No Do you have a fever (greater than 100.4 F or 38 C)?: No Have you tested positive for COVID-19?: No Exposed to someone with COVID-19 in past 14 days?: No Do you have a sore throat?: No Do you have a cough?: No Do you have any weakness?: No Are you experiencing any nausea/vomitting?: No Do you have any diarrhea?: No Are you experiencing any unusual bleeding?: No Do you have any muscle aches/pain?: No Do you have any abdominal pain?: No Are you experiencing loss of taste or smell?: No [facility] Anesthesia Checklist Patient Identification Patient Identification: Verbal (Name & ) Structural Data Admitted From: Home Planned Operative Procedure/s: egd/colonoscopy Consent for Planned Operative Procedure(s) Verified: Yes Additional verifications Anesthesia Reactions: No Hx Blood Transfusions: Yes Blood Transfusion Reaction: No Airway Assessment Mallampati Score:: Class II C-Spine Mobility Assessed: Yes TMJ Mobility Assessed: Yes Dentition: Good Dentition Neurological Assessment Level of Consciousness: Awake, Alert and Appropriate Anesthesia Plan Anesthesia Risk discussed: Yes Anesthesia Plan: Verified ASA Class: II Anesthesia Type: MAC
--- NOTE | 2024-10-19 07:49 | HMH.PROCNOTE ---
[facility] Procedure Note Date: 10/19/24 Time: 08:00 Procedure Note:: Upper Endoscopy Procedure Report: Esophagogastroduodenoscopy with cold biopsies and variceal band ligation Endoscopost: Kartik Wong II, MD Referring Physician: Roly Delong DO Date of Procedure: October 19, 2024 Equipment: Olympus GIF-1100 standard upper endoscope Sedation: MAC sedation Indications: Mrs. Alexander is a 63-year-old female who is here for diagnostic upper endoscopy and screening colonoscopy. 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 She has known cirrhosis felt related to long-term methotrexate use. Her FibroSure indeed showed advanced hepatic fibrosis with stage F4 fibrosis?cirrhosis which is well compensated. She has had no increased abdominal girth, cognitive impairment, melena or hematochezia. She did have an EGD with Daniel Ty MD showing grade 3 esophageal varices which were not banded. 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 She is due for repeat surveillance colonoscopy this year due to a personal history of adenomatous colon polyps. She has no complaints. She is on carvedilol. I had indicated that MENDEZ also plays a role with methotrexate hepatotoxicity and is a concurrent etiology. The patient's last liver ultrasound was approximately 6 months ago and showed nodular margin of the liver consistent with cirrhosis and portal vein enlargement with probable portal hypertension. She does have a mildly dilated common bile duct of 9 mm presumably secondary to her prior cholecystectomy. She reports no abdominal pain. Procedure: Prior to the procedure, a history and physical exam was performed, and patient's medications and allergies were reviewed. The risks, benefits and alternatives of the sedation and procedure were discussed with the patient. All questions were answered and informed consent was obtained. The patient was brought to the procedure room. Patient identification and proposed procedure were verified by the physician and the nurse. The patient was placed in a left lateral decubitus position and the scope was passed under direct vision. Throughout the procedure, the patient's blood pressure, pulse, and oxygen saturations were monitored continuously. The upper GI endoscopy was accomplished without difficulty. The patient tolerated the procedure well. Findings: The scope was passed directly into the upper esophagus and advanced to the third portion of the duodenum. The post bulbar duodenum and duodenal bulb were normal with normal mucosa and conniventes. The scope was withdrawn through a normal duodenal bulb and pylorus into the stomach. There were punctate AVMs with some coffee-ground in the stomach and mild portal gastropathy. There was no hiatal hernia. Cold biopsies were taken from the antrum. Upon retroflexion there were no gastric varices identified. The scope was then withdrawn into the esophagus. There were 3 columns of grade 2-3 esophageal varices (without stigmata). These columns were banded using 4 bands with excellent ligation effect. The remainder of the esophageal mucosa was normal. Impression: 1. Grade 2-3 esophageal varices status post band ligation x 4 2. Portal gastropathy Plan: I would continue the carvedilol low-dose for her portal hypertension. I will discuss the findings with the patient and family and follow-up the biopsy. I will proceed with screening colonoscopy.
--- NOTE | 2024-10-19 07:50 | P.PCN_ITS ---
[facility] Procedure Note Date: 10/19/24 Time: 08:17 Procedure Note:: Colonoscopy Procedure Report: Colonoscopy Endoscopist: Kartik Wong II, MD Referring physician: Roly Delong DO Date of Procedure: October 19, 2024 Equipment: Olympus [id number] adult colonoscope Sedation: MAC sedation Indication: Mrs. Alexander is a 63-year-old female who is here for diagnostic upper endoscopy and screening colonoscopy. She is due for repeat surveillance colonoscopy this year due to a personal history of adenomatous colon polyps. She reports no abdominal pain, weight loss, change in her bowel habits or rectal bleeding. Procedure: Prior to the procedure, a history and physical exam was performed, and patient's medications and allergies were reviewed. The risks, benefits and alternatives of the sedation and procedure were discussed with the patient. All questions were answered and informed consent was obtained. The patient was brought to the procedure room. Patient identification and proposed procedure were verified by the physician and the nurse. The patient was placed in a left lateral decubitus position and the scope was passed under direct vision. Throughout the procedure, the patient's blood pressure, pulse, and oxygen saturations were monitored continuously. The colonoscopy was accomplished without difficulty. The patient tolerated the procedure well. Findings: On digital rectal examination there was normal rectal tone. There were no external hemorrhoids. The colonoscope was introduced through the anal canal to the rectum and advanced to the cecum. The ileocecal valve and appendiceal orifice were identified. The scope was advanced a short distance into the ileum which appeared grossly normal. The scope was then withdrawn into the colon. The cecum, ascending and transverse colon and mucosa were grossly normal. There were scattered diverticuli throughout the descending and sigmoid colon (LEFT colon). The rectum itself was normal. Upon retroflexion within the rectum there were grade 1-2 internal hemorrhoids. The preparation was excellent throughout with [place] Preparation Score of 9. The cecal time was 12 minutes. Impression: 1. Left-sided diverticulosis 2. Grade 1-2 internal hemorrhoids Plan: Patient will not require repeat screening/surveillance colonoscopy again for 10 years by ACS guidelines.
[2024-10-19 08:18] VITALS: BP 129/67; PULSE 89; RESP 18; TEMP 36.4; O2SAT 98
[2024-10-19 08:28] VITALS: BP 99/50; PULSE 63; RESP 18; TEMP 37.2; O2SAT 99
[2024-10-19 08:38] VITALS: BP 106/67; PULSE 79; RESP 18; TEMP 36.4; O2SAT 99
[2024-10-19 08:48] VITALS: BP 130/70; PULSE 72; RESP 18; TEMP 36.4; O2SAT 100
== END 2024-10-19 08:48 | disposition home or self-care (01) ==
PROVIDERS: PCP Internal Medicine; Visit Provider Internal Medicine Gastroenterology
PROC: 0DJ08ZZ Inspection of Upper Intestinal Tract, Via Natural or Artificial Opening Endoscopic (ICD-10-PCS; CPT 45378; principal; 2024-10-19 08:00)
DX: Z12.11 Encounter for screening for malignant neoplasm of colon (principal); K57.30 Diverticulosis of large intestine without perforation or abscess without bleeding; K64.0 First degree hemorrhoids; K64.1 Second degree hemorrhoids; I85.10 Secondary esophageal varices without bleeding; K76.6 Portal hypertension; K31.89 Other diseases of stomach and duodenum; E11.9 Type 2 diabetes mellitus without complications; M19.91 Primary osteoarthritis, unspecified site; D64.9 Anemia, unspecified; I10 Essential (primary) hypertension; Z90.49 Acquired absence of other specified parts of digestive tract; Z90.710 Acquired absence of both cervix and uterus; Z87.891 Personal history of nicotine dependence; K74.69 Other cirrhosis of liver; Z79.899 Other long term (current) drug therapy; Z79.84 Long term (current) use of oral hypoglycemic drugs; L40.9 Psoriasis, unspecified; Z88.1 Allergy status to other antibiotic agents; Z86.0101 Personal history of adenomatous and serrated colon polyps; Z88.2 Allergy status to sulfonamides; Z88.6 Allergy status to analgesic agent
CPT/HCPCS: 43244; 43239; 45378; 82962; C1889; J2003; J2704; J7120

== ENCOUNTER 2024-10-28 15:37 | Outpatient (CLI) | payer OTHER, SELFPAY ==
--- NOTE | 2024-10-28 16:00 | MR_ITS ---
PROCEDURE INFORMATION: Exam: MR Left Lower Extremity Without Contrast, Tibia Fibula Exam date and time: 10/28/2024 4:20 PM Age: 63 years old Clinical indication: Pain; Lower leg; Left; Additional info: Left calf/leg pain TECHNIQUE: Imaging protocol: Magnetic resonance imaging of the left lower extremity without contrast. Exam focused on the tibia and fibula. COMPARISON: No relevant prior studies available. FINDINGS: Bones/joints: Small suprapatellar joint effusion Soft tissues: There is an ovoid slightly complex fluid collection in the medial calf soft tissues abutting the medial head of the gastrocnemius muscle. This measures 12.5 cm craniocaudal by 4.6 cm transverse by 6.4 cm AP. This contains internal debris. There is a 2nd similar collection superior to this measuring 2.8 x 1.6 cm. These findings likely indicate liquefied hematoma. Less likely abscess. Soft tissue swelling diffusely IMPRESSION: Liquefied hematomas in the medial upper calf.
== END 2024-10-28 23:59 | disposition home or self-care (01) ==
LOC: RAD 15:37
PROVIDERS: PCP Internal Medicine; Visit Provider Orthopaedic Surgery
DX: M79.81 Nontraumatic hematoma of soft tissue (principal); M79.605 Pain in left leg; M79.662 Pain in left lower leg
CPT/HCPCS: 73718